=== PATIENT | male | born 1950 | race Caucasian/White ===

== ENCOUNTER → 2021-08-21 08:24 | Outpatient (BNVA) | payer MEDICARE, SELFPAY | PROVIDERS: PCP Internal Medicine; Visit Provider Urology | DX: R97.20 Elevated prostate specific antigen [PSA] (principal); N40.3 Nodular prostate with lower urinary tract symptoms; N13.8 Other obstructive and reflux uropathy; R39.12 Poor urinary stream; R35.1 Nocturia; C61 Malignant neoplasm of prostate | CPT/HCPCS: 99202 ==

== ENCOUNTER 2021-09-17 07:35 | Outpatient (REF) | payer MEDICARE, SELFPAY ==
[2021-09-17 07:53] VITALS: BP 140/77; PULSE 77; RESP 16; TEMP 36.8; O2SAT 98; BMI 24.3
--- NOTE | 2021-09-17 08:24 | W.PM.OPN ---
Operative Note Operative Note Date of Service: 09/17/21 Narrative: Preoperative diagnosis: Elevated PSA Postoperative diagnosis: Elevated PSA Procedure: 1. transrectal ultrasound measurement of prostate 2. transrectal ultrasound-guided pudendal nerve block 3. transrectal ultrasound-guided prostate biopsy 12 core Surgeon: Dr. James Rosen Anesthetic: Local Indications for procedure: Elevated PSA 46, left nodule Procedure: After informed consent was verified, the patient was brought into the procedure area and lay left-hand side down on the table. Patient identity confirmed. Perioperative antibiotics confirmed. Iodine 10cc with Gel was placed per rectum Ultrasound probe was placed per rectum The prostate was measured in 3 dimensions Total volume equals 40 gm There were no cystic structures and no calcifications noted and the prostate was homogeneous in nature A ultrasound-guided pudendal nerve block was performed using 10 cc of 1% lidocaine. 8 cc was placed at the base and 2 cc of the apex. A 12 core biopsy was performed with 6 cores each side. Two cores were taken at the apex, mid and base. Cores were spaced between lateral and medial. He tolerated the procedure well. Was able to ambulate to bathroom after 5 minutes. Printed instructions regarding antibiotic use and common side effects such as low-grade temperature and bleeding were given Pathology: 12 core prostate biopsy.
== END 2021-09-17 07:36 | disposition home or self-care (01) ==
LOC: HO.US 07:35
PROVIDERS: Visit Provider Urology
PROC: (CPT 55700; principal; 2021-09-17 08:00)
DX: C61 Malignant neoplasm of prostate (principal)
CPT/HCPCS: 55700; 76942; 88305; 88342; 88344

== ENCOUNTER → 2021-09-26 10:31 | Outpatient (BNVA) | payer MEDICARE, SELFPAY | PROVIDERS: PCP Internal Medicine; Visit Provider Urology | DX: N40.1 Benign prostatic hyperplasia with lower urinary tract symptoms (principal); C61 Malignant neoplasm of prostate; N13.8 Other obstructive and reflux uropathy; R97.20 Elevated prostate specific antigen [PSA] | CPT/HCPCS: 51798; 99212 ==

== ENCOUNTER 2021-10-07 07:22 | Outpatient (REF) | payer MEDICARE, SELFPAY ==
--- NOTE | ~2021-10-07 | CT_ITS ---
EXAMINATION: CT ABDOMEN AND PELVIS WITHOUT CONTRAST CLINICAL INFORMATION: Prostate cancer. Pain. COMPARISON: None TECHNIQUE: Multidetector volumetric imaging was performed from the superior aspect of the liver through the pubic symphysis. Sagittal and coronal reformatted images were obtained on the technologist's workstation. This CT examination was performed using dose optimization techniques as appropriate, variously including the following: *Automated exposure control *Adjustment of mA and/or kV according to patient size (this includes techniques or standardized protocols for targeted exams where dose is matched to indication/reason for exam; i.e. extremities or head) *Use of iterative reconstruction technique DLP: 361 mGy-cm FINDINGS: LUNG BASES: There is a 3 mm peripheral right lower lobe nodule axial image 43 series 5. LIVER, GALLBLADDER, AND BILIARY TREE: The liver is normal in size, shape, and attenuation. No focal hepatic lesion or biliary ductal dilatation is present. The gallbladder is unremarkable with no evidence of radiopaque gallstones, gallbladder wall thickening, or obvious pericholecystic inflammatory changes. PANCREAS: Unremarkable. SPLEEN: Spleen is absent. There are small splenules. ADRENAL GLANDS: Unremarkable. KIDNEYS AND URETERS: The kidneys are normal in size, shape, and attenuation. No hydronephrosis, hydroureter, or calculi seen. No perinephric stranding. BLADDER: Prostate gland is enlarged and protrudes into the base of the bladder. There may be mild bladder wall thickening. GASTROINTESTINAL TRACT: There is diverticulosis of the colon. Small and large bowel is otherwise unremarkable. The appendix is is not seen. The stomach is unremarkable. ABDOMINAL WALL: No significant hernia is appreciated. LYMPH NODES: There are retroperitoneal lymph nodes in the abdomen. Larger lymph nodes are upper normal in size in the left periaortic region. There are enlarged lymph nodes in the pelvis. Largest left pelvic lymph node left external iliac lymph node measuring 1.2 cm. Largest right lymph node is a right pelvic sidewall or iliac bifurcation lymph node measuring 1.7 cm axial image 62 series 3. There is fat stranding surrounding the enlarged right pelvic retroperitoneal. VASCULAR: There is evidence of atherosclerotic disease. No aneurysm is seen. PELVIC VISCERA: Prostate gland is slightly enlarged, protrudes into the base of the bladder and measures 4 cm. The seminal vesicles appear prominent. No definite soft tissue mass in the pelvis is seen. OSSEOUS STRUCTURES: There are degenerative changes of the spine. There are mild degenerative changes at the joints. No fracture or bone lesion is seen CT/CT abdomen pelvis wo con IMPRESSION: Enlarged prostate gland that protrudes into the base of bladder. The seminal vesicles also appear enlarged. Retroperitoneal adenopathy in the abdomen and pelvis, largest a right pelvic sidewall lymph node measuring 1.7 cm. Diverticulosis of the colon. Absent spleen and splenules. Small 3 mm right lower lobe nodule. This is a nonspecific finding. Follow-up chest CT should be considered. Fleischner guidelines were followed.
== END 2021-10-07 07:23 | disposition home or self-care (01) ==
LOC: HO.CT 07:22
PROVIDERS: Visit Provider Urology
DX: C61 Malignant neoplasm of prostate (principal); C79.51 Secondary malignant neoplasm of bone; G89.3 Neoplasm related pain (acute) (chronic)
CPT/HCPCS: 74176

== ENCOUNTER → 2021-10-17 08:39 | Outpatient (BNVA) | payer MEDICARE, SELFPAY | PROVIDERS: PCP Internal Medicine; Visit Provider Urology | DX: C61 Malignant neoplasm of prostate (principal) | CPT/HCPCS: 96402; 99212; J9217 ==

== ENCOUNTER → 2021-11-21 09:45 | Outpatient (REF) | payer MEDICARE, SELFPAY ==
--- NOTE | ~2021-11-21 | NM_ITS ---
EXAMINATION: NM BONE SCAN OF THE WHOLE BODY CLINICAL INFORMATION: Malignant neoplasm of prostate. COMPARISON: CT of the abdomen and pelvis done on 10/07/2021. TECHNIQUE: Multiple gamma scintillation camera images of the whole body were performed 3 hours following the intravenous administration of 29 mCi Tc-99m MDP. FINDINGS: In the head, no suspicious focal lesion. Incidental note is made of focal increased radiotracer activities, one on each side in the region of the maxilla, may represent dental disease. In the thoracic cage and upper extremities, asymmetric focal increased radiotracer activity is present involving the posterior medial aspect of the right 10th rib. Asymmetric increased focal radiotracer activity at the lateral end of the right clavicle may represent posttraumatic versus metastatic disease. In the spine, subtle focal increased radiotracer activities are noted at L5 and L1, L2, on correlating with the prior CT study done on 10/07/2021, likely represent degenerative changes. In the pelvis, no suspicious focal lesion. In the lower extremities, no suspicious focal lesion. No other definite bony abnormalities are noted. The urinary bladder and faint visualization of both kidneys are noted. NM/NM bone scan whole body IMPRESSION: 1. Focal increased radiotracer activity along the posteromedial aspect of the right 10th rib, of indeterminate etiology. Asymmetric increase focal radiotracer activity in the lateral end of the right clavicle may represent posttraumatic versus metastatic disease. 2. Multifocal osseous increased radiotracer activities within the lumbar spine may represent changes secondary to degenerative spondylosis. Subtle early changes of osseous metastases may also have similar appearance and cannot be absolutely differentiated. 3. Abnormal increased radiotracer activities within the maxillary regions, likely represent dental disease. Follow-up PSMA PET CT study (more sensitive) may be considered for further clarification, if clinically appropriate.
== END ==
LOC: HO.NUCMED 09:45
PROVIDERS: Visit Provider Urology
DX: C61 Malignant neoplasm of prostate (principal); C79.51 Secondary malignant neoplasm of bone
CPT/HCPCS: 78306; A9503

== ENCOUNTER 2022-01-09 12:19 | Outpatient (REF) | payer MEDICARE, SELFPAY ==
[2022-01-09 13:35] LABS: Alanine Aminotransferase 25 U/L (0-40); Albumin Level 4.5 g/dL (3.5-5.0); Alkaline Phosphatase 62 U/L (39-117); Aspartate Amino Transferase 19 U/L (5-37); Bilirubin Direct 0.2 mg/dL (0.0-0.5); Bilirubin Total 0.5 mg/dL (0.0-1.0); Prostate Specific Antigen 4.71 ng/mL (<0.05-4.0); Total Protein 7.2 g/dL (6.5-8.0)
== END 2022-01-09 12:20 | disposition home or self-care (01) ==
LOC: HO.LAB 12:19
PROVIDERS: PCP Internal Medicine; Visit Provider Urology
DX: Z12.5 Encounter for screening for malignant neoplasm of prostate (principal); C61 Malignant neoplasm of prostate
CPT/HCPCS: 36415; 80076; 84153; 84403

== ENCOUNTER → 2022-01-15 09:23 | Outpatient (BNVA) | payer MEDICARE, SELFPAY | PROVIDERS: PCP Internal Medicine; Visit Provider Urology | DX: R23.2 Flushing (principal); T50.905A Adverse effect of unspecified drugs, medicaments and biological substances, initial encounter; C61 Malignant neoplasm of prostate; C77.2 Secondary and unspecified malignant neoplasm of intra-abdominal lymph nodes | CPT/HCPCS: Q3014 ==

== ENCOUNTER 2022-05-21 12:30 | Outpatient (REF) | payer MEDICARE, SELFPAY ==
[2022-05-21 16:15] LABS: Prostate Specific Antigen 3.68 ng/mL (<0.05-4.0)
[2022-05-28 12:33] LABS: Testosterone, Total <1 ng/dL (250-1100)
== END 2022-05-21 12:31 | disposition home or self-care (01) ==
LOC: HO.LAB 12:30
PROVIDERS: PCP Internal Medicine; Visit Provider Urology
DX: C61 Malignant neoplasm of prostate (principal); C77.2 Secondary and unspecified malignant neoplasm of intra-abdominal lymph nodes; R23.2 Flushing; T50.905A Adverse effect of unspecified drugs, medicaments and biological substances, initial encounter; E11.69 Type 2 diabetes mellitus with other specified complication; N52.1 Erectile dysfunction due to diseases classified elsewhere; Z12.5 Encounter for screening for malignant neoplasm of prostate
CPT/HCPCS: 36415; 84153; 84403; 96402; 99212; J9217

== ENCOUNTER → 2022-05-29 15:06 | Outpatient (BNV) | payer MEDICARE, SELFPAY | PROVIDERS: PCP Internal Medicine; Visit Provider Internal Medicine | DX: C61 Malignant neoplasm of prostate (principal) | CPT/HCPCS: 99205; 99213; 99214 ==

== ENCOUNTER 2022-08-20 13:31 | Outpatient (AMB) | payer MEDICARE, SELFPAY ==
--- NOTE | 2022-08-20 14:17 | A.OFFVIS_ITS ---
Intake Intake Visit Reasons: 3m/labs(SET) Intake Note: * Patient presents today for a 3mo follow-up with labs results * Meds- None * Allergies to Antibiotic- None * Blood Thinner- None Lead Tank Mechanic Required: No Accompanied by: Other Relationship Allergies No Known Allergies Allergy (Verified 08/20/22 14:17) HPI HPI Comments History of Present Illness Details Jayy is a pleasant male. He is a patient of Dr. Trujillo. He is seen for the following urologic conditions - elevated PSA - prostate nodule - lower urinary tract symptoms Current 4 tabs abiraterone. Tolerating meds. Three month follow-up with repeat GnRH. Consider follow-up imaging at that point in time 08/31 PSA 0.98 05/01 PSMA avid retroperitoneal lymph nodes, negative bony disease - abiraterone 1 tab daily with low fat breakfast protocol - GnRH administered 03/03 PSA 4.7 Current therapy - GnRH abiraterone with prednisone Prostate cancer - 09/30 high-grade, high-volume, grade group [address] Rosen 10/31 PSA at diagnosis 46 Biopsy #1 Histologic type: Adenocarcinoma, acinar and ductal types ? [place] score: 4+5=9 (left: base lateral and medial, mid lateral, mid medial, apex medial; right: base medial, apex medial) 4+4=8 (right: base lateral, mid lateral, mid medial, apex lateral) 3+4=7 (left apex lateral) ? % of pattern 4: 85%, % of pattern 5: 10%, Grade group: 5, 4, and 2 Tumor quantitation: - Number cores positive: 12 Total number of cores: 12 % of tissue involved: Greater than 95% of all tissue examined Periprostatic fat inv.: Present Seminal vesicle inv.: Not identified Perineural inv.: Present, widespread LVI: Not identified Staging - 10/31 CT scan with pelvic earl disease 1.8 cm consistent with metastases. No evidence of bony islands - 04/03 PET-CT with avid pelvic node right side Elevated PSA Last PSA 6/22 46.5 Prostate hard left side on TREE Lower urinary tract symptoms Initial symptom profile nocturia x1, weakness of stream, incomplete emptying No prior therapy PFSH Medical History High blood pressure Family History Brother Lung cancer Social History Household Members: Spouse and Family Patient Tobacco Use Status: Never used Tobacco Substance Use Type: Marijuana service: No Current occupational status: retired Gender identity: Male Review of Systems Const Denies chills and Denies fever(s) Card Reports no additional complaints and Denies syncope Resp Denies cough GI Denies abdominal pain and Denies heartburn Reports as per HPI and Denies change in libido Neuro Denies syncope Psych Denies change in libido Endo Denies change in libido Physical Exam Const General: cooperative, healthy appearing, comfortable and no acute distress Orientation/consciousness: patient oriented x3 HEENT Face and sinus: Yes normal facial exam Mouth: moist mucous membranes Neck Neck: Yes normal visual inspection, Yes full ROM and Yes trachea midline Chest Chest palpation & inspection: normal inspection of the chest Resp Effort & Inspection: normal respiratory effort, able to speak in complete sentences and no respiratory distress GI Inspection: Yes normal to inspection Back/Spine/Pelvis Cervical Spine: normal cervical lordosis Thoracic/Lumbar Spine: thoracic and lumbar spine normal to inspection Skin General skin exam: no rashes or lesions noted Neuro General: patient oriented x3, gait normal, tone normal and moves all extremities Extrem General: Yes normal to inspection and Yes capillary refill normal Results AMB Urinalysis, Automated UA Leukoctes 0 Paul/uL Last Edit by AZIZA Singleton on 08/20/22 14:37 UA Nitrite Negative Last Edit by AZIZA Singleton on 08/20/22 14:37 UA Urobilinogen 0.2 mg/dL Last Edit by AZIZA Singleton on 08/20/22 14:3 7 UA Protein 0 mg/dL Last Edit by AZIZA Sinlgeton on 08/20/22 14:37 UA pH 6.0 Last Edit by AZIZA Singleton on 08/20/22 14:37 UA Blood 0 Jarek/uL Last Edit by AZIZA Singleton on 08/20/22 14:37 UA Specific Epes 1.030 Last Edit by AZIZA Singleton on 08/20/22 14: 37 UA Ketone Negative Last Edit by AZIZA Singleton on 08/20/22 14:37 UA Bilirubin 0 mg/dL Last Edit by AZIZA Singleton on 08/20/22 14:37 UA Glucose 0 mg/dL Last Edit by AZIZA Singleton on 08/20/22 14:37 Results Reviewed Results Reviewed: Laboratory Last Values Urine pH (Auto) 6.0 08/20/22 14:36 Specific Epes (Auto) 1.030 08/20/22 14:36 Urine Protein (Auto) 0 mg/dL 08/20/22 14:36 Glucose (UA)(Auto) 0 mg/dL 08/20/22 14:36 Urine Ketones (Auto) Negative 08/20/22 14:36 Urine Blood (Auto) 0 Jarek/uL 08/20/22 14:36 Urine Nitrite (Auto) Negative 08/20/22 14:36 Urine Bilirubin (Auto) 0 mg/dL 08/20/22 14:36 Urine Urobilinogen (Auto) 0.2 mg/dL 08/20/22 14:36 Leukocyte Esterase (Auto) 0 Paul/uL 08/20/22 14:36 Assessment & Plan Assessment & Plan (1) Prostate cancer: Comment: 09/30 high-grade high-volume, CT earl disease Code(s): C61 - Malignant neoplasm of prostate (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: Code(s): C61 - Malignant neoplasm of prostate; C77.2 - Secondary and unspecified malignant neoplasm of intra-abdominal lymph nodes Plan 3 month follow-up lab work Orders: Orders AMB Urinalysis Automated Today Z13.9 - Encounter for screening, unspecified Prostate Specific Antigen 3 Months C61 - Malignant neoplasm of prostate, C77.2 - Secondary and unspecified malignant neoplasm of intra-abdominal lymph nodes Testosterone, Total 3 Months C61 - Malignant neoplasm of prostate, C77.2 - Secondary and unspecified malignant neoplasm of intra-abdominal lymph nodes Patient Instructions: Imaging studies, laboratory and physical exam results were discussed and r eviewed in detail. No major barriers to patient understanding were identified. An opportunity to ask questions regarding the treatment plan was provided. All questions were answered. The patient expressed understanding and agreement with the above treatment plan. The patient is aware they should contact our office by phone for worsening of their current condition or the appearance of new urologic symptoms. Compliance is encouraged with any medications and followup testing that is ordered. It is a privilege to participate in the urologic care of your patient. If you have any questions or concerns regarding treatment for the above conditions, or other urologic issues, please do not hesitate to contact me. The office telephone contact is [phone]. This note is constructed using voice recognition software. While every effort has been made to ensure accuracy lace burn out tender errors may have been included. Yours sincerely, Dr James Rosen MD, [facility] - Urology Providers of Expert, Compassionate Care for the Genitourinary System Coding Level of Care Code Est Pt Level 3 (07079) Diagnoses Prostate cancer C61 Prostate cancer metastatic to intraabdominal lymph node C61; C77.2
== END 2022-08-20 15:11 | disposition home or self-care (01) ==
PROVIDERS: Visit Provider Urology
DX: C61 Malignant neoplasm of prostate (principal); C77.2 Secondary and unspecified malignant neoplasm of intra-abdominal lymph nodes
CPT/HCPCS: 99213

== ENCOUNTER → 2022-08-20 13:31 | Outpatient (BNVA) | payer MEDICARE, SELFPAY | PROVIDERS: Visit Provider Urology | DX: C61 Malignant neoplasm of prostate (principal); C77.2 Secondary and unspecified malignant neoplasm of intra-abdominal lymph nodes | CPT/HCPCS: 99212 ==

== ENCOUNTER 2022-12-10 13:59 | Outpatient (AMB) | payer MEDICARE, SELFPAY ==
--- NOTE | 2022-12-10 14:04 | MHC.OFFVIS ---
Intake Intake Visit Reasons: 3m/PSA/Testosterone/GnRH(set) Intake Note: Patient is Present for Follow Up Labs/Eligard Injection Urology Medication: Eligard(q6m), Abiraterone, Prednisone Antibiotic Allergies: None Blood Thinners:None Pharmacy: [facility] Allergies No Known Allergies Allergy (Verified 12/10/22 14:12) Medication List - Last Reconciled 12/10/22 by James Rosen MD abiraterone 1,000 mg (4 x 250 mg) PO DAILY 30 days leuprolide acetate (6 month) (Eligard) 45 mg subcut [id number] prednisone 5 mg PO BID 30 days progesterone micronized 200 mg PO BEDTIME 90 days HPI HPI Comments History of Present Illness Details Jayy is a pleasant male. He is a patient of Dr. Trujillo. He is seen for the following urologic conditions - elevated PSA - prostate nodule - lower urinary tract symptoms Current 4 tabs abiraterone. Tolerating meds. Good control hormonally Reimage in 3 months with PET-CT and DEXA 12/01 PSA 0.5 , T<3 Hot flashes respond to micronized progesterone 08/31 PSA 0.98 05/01 PSMA avid retroperitoneal lymph nodes, negative bony disease - abiraterone 1 tab daily with low fat breakfast protocol - GnRH administered 03/03 PSA 4.7 Current therapy - GnRH abiraterone with prednisone Prostate cancer - 09/30 high-grade, high-volume, grade group 5 Completed oncology assessment - 08/01 Offered triple therapy - GnRH, chemotherapy, anti androgen - declined chemotherapy Genetic testing submitted to in in July 2022 was negative for any known pathogenic or likely pathogenic variants Diagnosed by Dr. Rosen 10/31 PSA at diagnosis 46 Biopsy #1 Histologic type: Adenocarcinoma, acinar and ductal types ? [place] score: 4+5=9 (left: base lateral and medial, mid lateral, mid medial, apex medial; right: base medial, apex medial) 4+4=8 (right: base lateral, mid lateral, mid medial, apex lateral) 3+4=7 (left apex lateral) Tumor quantitation: - Number cores positive: 12 Total number of cores: 12 % of tissue involved: Greater than 95% of all tissue examined Periprostatic fat inv.: Present Seminal vesicle inv.: Not identified Perineural inv.: Present, widespread LVI: Not identified Staging - 10/31 CT scan with pelvic earl disease 1.8 cm consistent with metastases. No evidence of bony islands - 04/03 PET-CT with avid pelvic node right side Elevated PSA Last PSA 07/31 46.5 Prostate hard left side on TREE Lower urinary tract symptoms Initial symptom profile nocturia x1, weakness of stream, incomplete emptying No prior therapy PFSH Medical History High blood pressure Family History Brother Lung cancer Social History Household Members: Spouse and Family Patient Tobacco Use Status: Never used Tobacco Substance Use Type: Marijuana service: No Current occupational status: retired Gender identity: Male Review of Systems Const Denies chills and Denies fever(s) Card Reports no additional complaints and Denies syncope Resp Denies cough GI Denies abdominal pain and Denies heartburn Reports as per HPI and Denies change in libido Neuro Denies syncope Psych Denies change in libido Endo Denies change in libido Physical Exam Const General: cooperative, healthy appearing, comfortable and no acute distress Orientation/consciousness: patient oriented x3 HEENT Face and sinus: Yes normal facial exam Mouth: moist mucous membranes Neck Neck: Yes normal visual inspection, Yes full ROM and Yes trachea midline Chest Chest palpation & inspection: normal inspection of the chest Resp Effort & Inspection: normal respiratory effort, able to speak in complete sentences and no respiratory distress GI Inspection: Yes normal to inspection Back/Spine/Pelvis Cervical Spine: normal cervical lordosis Thoracic/Lumbar Spine: thoracic and lumbar spine normal to inspection Skin General skin exam: no rashes or lesions noted Neuro General: patient oriented x3, gait normal, tone normal and moves all extremities Extrem General: Yes normal to inspection and Yes capillary refill normal Office Meds Eligard (6 month) 45 mg (6 month) subcutaneous syringe Performing Provider: James Rosen MD [facility] Administered by: Daniele Bernabe LPN on 12/10/22 14:27 Dose Route Admin Location Dispensed Lot Number Expiration Date [facility] 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: Code(s): M81.8 - Other osteoporosis without current pathological fracture; T38.7X5A - Adverse effect of androgens and anabolic congeners, initial encounter (2) Prostate cancer: Comment: 09/30 high-grade high-volume, CT earl disease Code(s): C61 - Malignant neoplasm of prostate (3) Prostate cancer metastatic to intraabdominal lymph node: Code(s): C61 - Malignant neoplasm of prostate; C77.2 - Secondary and unspecified malignant neoplasm of intra-abdominal lymph nodes (4) Hot flash due to medication: Code(s): R23.2 - [place]; T50.905A - Adverse effect of unspecified drugs, medicaments and biological substances, initial encounter Plan Three month follow-up imaging with lab Orders: Orders AMB Leuprolide Injection - Practice Supplied Today C61 - Malignant neoplasm of prostate XR DEXA axial skeleton 3 Months M81.8 - Other osteoporosis without current pathological fracture, T38.7X5A - Adverse effect of androgens and anabolic congeners, initial encounter Prostate Specific Antigen 3 Months C61 - Malignant neoplasm of prostate, C77.2 - Secondary and unspecified malignant neoplasm of intra-abdominal lymph nodes Testosterone, Total 3 Months C61 - Malignant neoplasm of prostate, C77.2 - Secondary and unspecified malignant neoplasm of intra-abdominal lymph nodes Creatinine 3 Months C61 - Malignant neoplasm of prostate, C77.2 - Secondary and unspecified malignant neoplasm of intra-abdominal lymph nodes Blood Urea Nitrogen 3 Months C61 - Malignant neoplasm of prostate, C77.2 - Secondary and unspecified malignant neoplasm of intra-abdominal lymph nodes PET CT fusion skull to thigh 3 Months C61 - Malignant neoplasm of prostate, C77.2 - Secondary and unspecified malignant neoplasm of intra-abdominal lymph nodes Medications: New Eligard (6 month) (leuprolide acetate (6 month)) 45 mg subcut ONCE 1 ea 0RF NS C61 - Malignant neoplasm of prostate Refilled progesterone micronized 200 mg PO BEDTIME 90 days 90 caps 1RF N95.1 - Menopausal and female climacteric states Patient Instructions: Imaging studies, laboratory and physical exam results were discussed and reviewed in detail. No major barriers to patient understanding were identified. An opportunity to ask questions regarding the treatment plan was provided. All questions were answered. The patient expressed understanding and agreement with the above treatment plan. The patient is aware they should contact our office by phone for worsening of their current condition or the appearance of new urologic symptoms. Compliance is encouraged with any medications and followup testing that is ordered. It is a privilege to participate in the urologic care of your patient. If you have any questions or concerns regarding treatment for the above conditions, or other urologic issues, please do not hesitate to contact me. The office telephone contact is [phone]. This note is constructed using voice recognition software. While every effort has been made to ensure accuracy talent acquisition consultant errors may have been included. Yours sincerely, Dr James Rosen MD, [facility] - Urology Providers of Expert, Compassionate Care for the Genitourinary System Coding Level of Care Code Est Pt Level 4 (65910) Diagnoses Osteoporosis due to androgen therapy M81.8; T38.7X5A Prostate cancer C61 Prostate cancer metastatic to intraabdominal lymph node C61; C77.2 Hot flash due to medication R23.2; T50.905A
== END 2022-12-10 14:36 | disposition home or self-care (01) ==
LOC: HO.HUSH 13:59
PROVIDERS: PCP Internal Medicine; Visit Provider Urology
DX: M81.8 Other osteoporosis without current pathological fracture (principal); T38.7X5A Adverse effect of androgens and anabolic congeners, initial encounter; C61 Malignant neoplasm of prostate; C77.2 Secondary and unspecified malignant neoplasm of intra-abdominal lymph nodes; R23.2 Flushing; T50.905A Adverse effect of unspecified drugs, medicaments and biological substances, initial encounter
CPT/HCPCS: 99214

== ENCOUNTER → 2022-12-10 13:59 | Outpatient (BNVA) | payer MEDICARE, SELFPAY | PROVIDERS: PCP Internal Medicine; Visit Provider Urology | DX: C61 Malignant neoplasm of prostate (principal); C77.2 Secondary and unspecified malignant neoplasm of intra-abdominal lymph nodes; M81.8 Other osteoporosis without current pathological fracture; R23.2 Flushing; T38.7X5A Adverse effect of androgens and anabolic congeners, initial encounter | CPT/HCPCS: 96402; 99212; J9217 ==

== ENCOUNTER 2023-04-10 08:44 | Outpatient (AMB) | payer MEDICARE, SELFPAY ==
--- NOTE | 2023-04-10 08:45 | A.OFFVIS_ITS ---
Intake Intake Visit Reasons: 3M PSA/Testosterone(set) (Confirmed) Intake Note: Patient presents today for a telehealth follow-up Meds- Eligard, Allergies to Antibiotic- No Known Allergies Blood Thinner- None Olga Argueta is patient sister and will answer the phone call. Cargo Agent Required: No Allergies No Known Allergies Allergy (Verified 04/10/23 08:49) Medication List - Last Reconciled 04/10/23 by James Rosen MD abiraterone 1,000 mg (4 x 250 mg) PO DAILY 90 days diclofenac sodium 1% 2 grams topical ONCE PRN 30 days leuprolide acetate (6 month) (Eligard) 45 mg subcut [id number] prednisone 5 mg PO BID 30 days progesterone micronized 200 mg PO BEDTIME 90 days HPI HPI Comments History of Present Illness Details Jayy is a pleasant male. He is a patient of Dr. Trujillo. He is seen for the following urologic conditions - elevated PSA - prostate nodule - lower urinary tract symptoms Discussed imaging results and lab work Will continue current therapy Three-month follow-up lab with DEXA scan Tells me abiraterone has been reduced to 2 tabs per day secondary to fatigue by Oncology 05/02 Current 2 tabs abiraterone. Tolerating meds. Good control hormonally - PSA 0.2 T<! PET-CT - avid retroperitoneal lymph nodes remain. Similar to 12 months ago. 12/01 PSA 0.5 , T<3 Hot flashes respond to micronized progesterone 08/31 PSA 0.98 05/01 PSMA avid retroperitoneal lymph nod es, negative bony disease - abiraterone 1 tab daily with low fat b reakfast protocol - GnRH administered 03/03 PSA 4.7 Current therapy - GnRH logan raterone with prednisone Prostate cancer - 09/30 high-grade, high-volume, grade group 5 Completed oncology assessment - 08/01 Offered triple therapy - GnRH, chemotherapy, anti androgen - declined chemotherapy Genetic testing submitted to in in July 2022 was negative for any known pathogenic or likely pathogenic variants Diagnosed by Dr. Rosen 10/31 PSA at diagnosis 46 Biopsy #1 Histologic type: Adenocarcinoma, acinar and ductal types Terrance score: 4+5=9 (left: base lateral and medial, mid lateral, mid medial, apex medial; right: base medial, apex medial) 4+4=8 (right: base lateral, mid lateral, mid medial, apex lateral) 3+4=7 (left apex lateral) Tumor quantitation: - Number cores positive: 12 Total number of cores: 12 % of tissue involved: Greater than 95% of all tissue examined Periprostatic fat inv.: Present Seminal vesicle inv.: Not identified Perineural inv.: Present, widespread LVI: Not identified Staging - 10/31 CT scan with pelvic earl disease 1.8 cm consistent with metastases. No evidence of bony islands - 04/03 PET-CT with avid pelvic node righ t side Elevated PSA Last PSA 07/31 46.5 Prostate hard left side on TREE Lower urinary tract symptoms Initial symptom profile nocturia x1, weakness of stream, incomplete emptying No prior therapy PFSH Medical History High blood pressure Family History Brother Lung cancer Social History Household Members: Spouse and Family Patient Tobacco Use Status: Never used Tobacco Substance Use Type: Marijuana service: No Current occupational status: retired Gender identity: Male Review of Systems Const All systems reviewed & are unremarkable except as noted in HPI and below Reports no additional complaints Resp Reports no additional complaints GI Reports no additional complaints Reports as per HPI Musc Reports no additional complaints Physical Exam Telemedicine evaluation Appropriate responses Regular breathing rate and rhythm HEENT Head: Yes normal to inspection Ears: hearing grossly normal bilaterally Eyes General: appearance normal, both eyes and all related structures Neck Neck: Yes normal visual inspection Chest Chest palpation & inspection: normal inspection of the chest Resp Effort & Inspection: normal respiratory effort and able to speak in complete sentences 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: Code(s): M81.8 - Other osteoporosis without current pathological fracture; T38.7X5A - Adverse effect of androgens and anabolic congeners, initial encounter (2) Prostate cancer: Comment: 09/30 high-grade high-volume, CT earl disease Code(s): C61 - Malignant neoplasm of prostate (3) Hot flash due to medication: Code(s): R23.2 - [place]; T50.905A - Adverse effect of unspecified drugs, medicaments and biological substances, initial encounter (4) Prostate cancer metastatic to intraabdominal lymph node: Code(s): C61 - Malignant neoplasm of prostate; C77.2 - Secondary and unspecified malignant neoplasm of intra-abdominal lymph nodes Plan Continue current therapy Three-month follow-up labs +DEXA scan Orders: Orders Prostate Specific Antigen 3 Months C61 - Malignant neoplasm of prostate, C77.2 - Secondary and unspecified malignant neoplasm of intra-abdominal lymph nodes Testosterone, Total 3 Months C61 - Malignant neoplasm of prostate, C77.2 - Secondary and unspecified malignant neoplasm of intra-abdominal lymph nodes XR DEXA axial skeleton 3 Months C61 - Malignant neoplasm of prostate, C77.2 - Secondary and unspecified malignant neoplasm of intra-abdominal lymph nodes Patient Instructions: Imaging studies, laboratory and physical exam results were discussed and reviewed in detail. No major barriers to patient understanding were identified. An opportunity to ask questions regarding the treatment plan was provided. All questions were answered. The patient expressed understanding and agreement with the above treatment plan. The patient is aware they should contact our office by phone for worsening of their current condition or the appearance of new urologic symptoms. Compliance is encouraged with any medications and followup testing that is ordered. It is a privilege to participate in the urologic care of your patient. If you have any questions or concerns regarding treatment for the above conditions, or other urologic issues, please do not hesitate to contact me. The office telephone contact is [phone]. This note is constructed using voice recognition software. While every effort has been made to ensure accuracy hop weigher errors may have been included. Yours sincerely, Dr James Rosen MD, [facility] - Urology Providers of Expert, Compassionate Care for the Genitourinary System Telehealth Telehealth Location of provider rendering services: practice address Location of patient: address on file Patient Identification confirmed using: Name, : Yes Telehealth method: video Patient verbally consented to treatment: Yes Patient verbally consented to billing insurance company: Yes Patient informed of any privacy concerns related to visit: Yes Coding Level of Care Code Tele Est Pt Level 3 (20371) Diagnoses Osteoporosis due to androgen therapy M81.8; T38.7X5A Prostate cancer C61 Hot flash due to medication R23.2; T50.905A Prostate cancer metastatic to intraabdominal lymph node C61; C77.2
== END 2023-04-10 10:12 | disposition home or self-care (01) ==
LOC: HO.HUSH 08:44
PROVIDERS: PCP Internal Medicine; Visit Provider Urology
DX: M81.8 Other osteoporosis without current pathological fracture (principal); T38.7X5A Adverse effect of androgens and anabolic congeners, initial encounter; C61 Malignant neoplasm of prostate; R23.2 Flushing; T50.905A Adverse effect of unspecified drugs, medicaments and biological substances, initial encounter; C77.2 Secondary and unspecified malignant neoplasm of intra-abdominal lymph nodes
CPT/HCPCS: 99213

== ENCOUNTER → 2023-04-10 08:44 | Outpatient (BNVA) | payer MEDICARE, SELFPAY | PROVIDERS: PCP Internal Medicine; Visit Provider Urology ==

== ENCOUNTER 2023-08-06 08:04 | Outpatient (REF) | payer MEDICARE, SELFPAY ==
--- NOTE | ~2023-08-06 | MM_ITS ---
EXAMINATION: BONE DENSITOMETRY CLINICAL INDICATION: Malignant neoplasm of prostate. COMPARISON: This is the patient's baseline examination. TECHNIQUE: Using a [employer] DXA System (software version: 13.1) manufactured by [employer], dual-energy x-ray absorptiometry was performed of the lumbar spine and left hip. The images are of good technical quality. Summary results are attached. FINDINGS: LEFT FEMUR, NECK: BMD 0.988 g/cm2, Z-score 0.7, T-score -0.6, normal. LEFT FEMUR, TOTAL: BMD 1.033 g/cm2, Z-score 0.4, T-score -0.5, normal. AP SPINE L1-L4: BMD 1.396 g/cm2, Z-score 2.1, T-score 1.5, normal. IDENTIFIED RISK FACTORS: Glucocorticoids (chronic). HISTORY OF FRACTURE: None listed. MEDICATIONS: None listed. MM/XR DEXA axial skeleton IMPRESSION: 1. DIAGNOSIS: Normal bone density based on the lowest T-score value of -0.6 in the femoral neck applying World Health Organization criteria. 2. 10-YEAR FRACTURE RISK PREDICTION, FRAX: According to the guidelines, FRAX calculation should only be performed on patients in the osteopenia bone density category. Therefore, FRAX was not performed on this patient. 3. Treatment Recommendations: NOF guidelines recommend consideration for treatment in postmenopausal women and men age 50 and older presenting with the following: -A hip or vertebral (clinical or morphometric) fracture. -T-score less than or equal to -2.5 at the femoral neck or spine after appropriate evaluation to exclude secondary causes. -Low bone mass at the hip or spine and a 10-year fracture probability by FRAX of greater than or equal to 3% for hip fracture or greater than or equal to 20% for major osteoporotic fracture based on the [place] adapted WHO algorithm. 4. Other Recommendations: All treatment decisions require clinical judgment and consideration of individual patient factors, including patient preferences, comorbidities, previous drug use, risk factors not captured in the FRAX model (e.g. frailty, falls, vitamin D deficiency, increased bone turnover, interval significant decline in bone density) and possible under or overestimation of fracture risk by FRAX. FUTURE SCAN RECOMMENDATION: People with diagnosed cases of osteoporosis or at high risk for fracture should have regular bone mineral density tests. For patients eligible for Medicare, routine testing is allowed once every 2 years. The testing frequency can be increased to one year for patients who have rapidly progressing disease, those who are receiving or discontinuing medical therapy to restore bone mass, or have additional risk factors.
== END 2023-08-06 08:05 | disposition home or self-care (01) ==
LOC: HO.MAMMO 08:04
PROVIDERS: PCP Internal Medicine; Visit Provider Urology
DX: Z13.820 Encounter for screening for osteoporosis (principal); C61 Malignant neoplasm of prostate; C77.2 Secondary and unspecified malignant neoplasm of intra-abdominal lymph nodes; E27.49 Other adrenocortical insufficiency
CPT/HCPCS: 77080

== ENCOUNTER 2023-09-01 13:42 | Outpatient (AMB) | payer MEDICARE, SELFPAY ==
--- NOTE | 2023-09-01 14:12 | MHC.OFFVIS ---
Intake Visit Reasons: 3M PSA/Testo/Bone Scan(set) Intake Note: Patient presents today for a 3m/PSA/TESTO/BONE SCAN follow-up Meds- Eligard,PREDNISONE,PROGESTERONE,ABIRATERONE,DICLOFENAC SODIUM,LEUPROLIDE ACETATE Allergies to Antibiotic- No Known Allergies Blood Thinner- None Casino Cashier Manager Required: No Allergies No Known Allergies Allergy (Verified 09/01/23 14:17) Medication List - Last Reconciled 09/01/23 by James Rosen MD abiraterone 1,000 mg (4 x 250 mg) PO DAILY 90 days diclofenac sodium 1% 2 grams topical ONCE PRN 30 days leuprolide acetate (6 month) (Eligard) 45 mg subcut [id number] prednisone 5 mg PO BID 30 days progesterone micronized 200 mg PO BEDTIME 90 days HPI Comments Details: Jayy is a pleasant male. He is a patient of Dr. Trujillo. He is seen for the following urologic conditions - elevated PSA - prostate nodule - lower urinary tract symptoms Doing well Minimal symptoms Due for GnRH Plan for repeat labs in 3 months PET-CT in 3 months Continue progesterone 09/01 - DEXA normal bone density PSA 0.2 T < 2 05/02 Current 2 tabs abiraterone. Tolerating meds. Good control hormonally - PSA 0.2 , T<2 PET-CT - avid retroperitoneal lymph nodes remain. Similar to 12 months ago. 01/01 PSA 0.5 , T<3 Hot flashes respond to micronized progesterone GnRH 08/31 PSA 0.98 05/01 PSMA avid retroperitoneal lymph nodes, negative bony disease - abiraterone 1 tab daily with low fat breakfast protocol - GnRH administered 03/03 PSA 4.7 Current therapy - GnRH abiraterone with prednisone Prostate cancer - 09/30 high-grade, high-volume, grade group 5 Completed oncology assessment - 08/01 Offered triple therapy - GnRH, chemotherapy, anti androgen - declined chemotherapy Genetic testing submitted to in in July 2022 was negative for any known pathogenic or likely pathogenic variants Diagnosed by Dr. Rosen 10/31 PSA at diagnosis 46 Biopsy #1 Histologic type: Adenocarcinoma, acinar and ductal types Musella score: 4+5=9 (left: base lateral and medial, mid lateral, mid medial, apex medial; right: base medial, apex medial) 4+4=8 (right: base lateral, mid lateral, mid medial, apex lateral) 3+4=7 (left apex lateral) Tumor quantitation: - Number cores positive: 12 Total number of cores: 12 % of tissue involved: Greater than 95% of all tissue examined Periprostatic fat inv.: Present Seminal vesicle inv.: Not identified Perineural inv.: Present, widespread LVI: Not identified Staging - 10/31 CT scan with pelvic earl disease 1.8 cm consistent with metastases. No evidence of bony islands - 04/03 PET-CT with avid pelvic node right side Elevated PSA Last PSA 07/31 46.5 Prostate hard left side on TREE Lower urinary tract symptoms Initial symptom profile nocturia x1, weakness of stream, incomplete emptying No prior therapy PFSH Medical History High blood pressure Family History Brother Lung cancer Social History Household Members: Spouse and Family Patient Tobacco Use Status: Never used Tobacco Substance Use Type: Marijuana service: No Current occupational status: retired Gender identity: Male Review of Systems Const Denies chills and Denies fever(s) Card Reports no additional complaints and Denies syncope Resp Denies cough GI Denies abdominal pain and Denies heartburn Reports as per HPI and Denies change in libido Neuro Denies syncope Psych Denies change in libido Endo Denies change in libido Physical Exam Const General: cooperative, healthy appearing, comfortable and no acute distress Orientation/consciousness: patient oriented x3 HEENT Face and sinus: Yes normal facial exam Mouth: moist mucous membranes Neck Neck: Yes normal visual inspection, Yes full ROM and Yes trachea midline Chest Chest palpation & inspection: normal inspection of the chest Resp Effort & Inspection: normal respiratory effort, able to speak in complete sentences and no respiratory distress GI Inspection: Yes normal to inspection Back/Spine/Pelvis Cervical Spine: normal cervical lordosis Thoracic/Lumbar Spine: thoracic and lumbar spine normal to inspection Skin General skin exam: no rashes or lesions noted Neuro General: patient oriented x3, gait normal, tone normal and moves all extremities Extrem General: Yes normal to inspection and Yes capillary refill normal Results AMB Urinalysis, Automated UA Leukoctes 0 Paul/uL Last Edit by GORGE Weathers on 09/01/23 14:34 UA Nitrite Negative Last Edit by Erasto Aleman [facility] on 09/01/23 14:34 UA Urobilinogen 0.2 mg/dL Last Edit by Erasto Aleman [facility] on 09/01/23 14:34 UA Protein 0 mg/dL Last Edit by Erasto Aleman [facility] on 09/01/23 14:34 UA pH 7.0 Last Edit by Erasto Aleman [facility] on 09/01/23 14:34 UA Blood 0 Jarek/uL Last Edit by Erasto Aleman [facility] on 09/01/23 14:34 UA Specific [place] 1.010 Last Edit by Erasto Aleman [facility] on 09/01/23 14:34 UA Ketone Negative Last Edit by Erasto Aleman [facility] on 09/01/23 14:34 UA Bilirubin 0 mg/dL Last Edit by Erasto Aleman [facility] on 09/01/23 14:34 UA Glucose 0 mg/dL Last Edit by Erasto Aleman [facility] on 09/01/23 14:34 Results Reviewed Results Reviewed: Laboratory Last Values Urine pH (Auto) 7.0 09/01/23 14:33 Specific [place] (Auto) 1.010 09/01/23 14:33 Urine Protein (Auto) 0 mg/dL 09/01/23 14:33 Glucose (UA)(Auto) 0 mg/dL 09/01/23 14:33 Urine Ketones (Auto) Negative 09/01/23 14:33 Urine Blood (Auto) 0 Jarek/uL 09/01/23 14:33 Urine Nitrite (Auto) Negative 09/01/23 14:33 Urine Bilirubin (Auto) 0 mg/dL 09/01/23 14:33 Urine Urobilinogen (Auto) 0.2 mg/dL 09/01/23 14:33 Leukocyte Esterase (Auto) 0 Paul/uL 09/01/23 14:33 Assessment & Plan Assessment & Plan (1) Prostate cancer: Comment: 09/30 high-grade high-volume, CT earl disease Code(s): C61 - Malignant neoplasm of prostate Category: Medical (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: Code(s): C61 - Malignant neoplasm of prostate; C77.2 - Secondary and unspecified malignant neoplasm of intra-abdominal lymph nodes Category: Medical Plan Three-month follow-up imaging Orders: Orders AMB Urinalysis Automated 09/01/23 Z13.9 - Encounter for screening, unspecified PET CT fusion skull to thigh 3 Months C61 - Malignant neoplasm of prostate, C77.2 - Secondary and unspecified malignant neoplasm of intra-abdominal lymph nodes Prostate Specific Antigen 3 Months C61 - Malignant neoplasm of prostate, C77.2 - Secondary and unspecified malignant neoplasm of intra-abdominal lymph nodes Testosterone, Total 3 Months C61 - Malignant neoplasm of prostate, C77.2 - Secondary and unspecified malignant neoplasm of intra-abdominal lymph nodes Medications: Refilled progesterone micronized 200 mg PO BEDTIME 90 caps 1RF 90 days N95.1 - Menopausal and female climacteric states Patient Instructions: Imaging studies, laboratory and physical exam results were discussed and reviewed in detail. No major barriers to patient understanding were identified. An opportunity to ask questions regarding the treatment plan was provided. All questions were answered. The patient expressed understanding and agreement with the above treatment plan. The patient is aware they should contact our office by phone for worsening of their current condition or the appearance of new urologic symptoms. Compliance is encouraged with any medications and followup testing that is ordered. It is a privilege to participate in the urologic care of your patient. If you have any questions or concerns regarding treatment for the above conditions, or other urologic issues, please do not hesitate to contact me. The office telephone contact is [phone]. This note is constructed using voice recognition software. While every effort has been made to ensure accuracy clothespin drier operator errors may have been included. Yours sincerely, Dr James Rosen MD, [facility] - Urology Providers of Expert, Compassionate Care for the Genitourinary System Coding Level of Care Code Est Pt Level 3 (10620) Diagnoses Prostate cancer C61 Prostate cancer metastatic to intraabdominal lymph node C61; C77.2
== END 2023-09-01 15:07 | disposition home or self-care (01) ==
PROVIDERS: PCP Internal Medicine; Visit Provider Urology
DX: C61 Malignant neoplasm of prostate (principal); C77.2 Secondary and unspecified malignant neoplasm of intra-abdominal lymph nodes
CPT/HCPCS: 99213

== ENCOUNTER → 2023-09-01 13:42 | Outpatient (BNVA) | payer MEDICARE, SELFPAY | PROVIDERS: PCP Internal Medicine; Visit Provider Urology | DX: C61 Malignant neoplasm of prostate (principal); C77.2 Secondary and unspecified malignant neoplasm of intra-abdominal lymph nodes | CPT/HCPCS: 81003; 99212 ==

== ENCOUNTER 2023-12-03 10:24 | Outpatient (AMB) | payer MEDICARE, SELFPAY ==
--- NOTE | 2023-12-03 10:24 | MHC.OFFVIS ---
Intake Visit Reasons: Follow up pet ct discussion Intake Note: Patient is Present for Telephone Follow Up discussion on PET CT scan Urology Med:Progesterone, Abiraterone Antibiotic Allergy:None Blood Thinner: None Has not had any recent Labs done PSA/Testosterone Will need to re discuss Pet Ct To have scheduled Diesel Truck Driver Required: No Bundling Machine Operator: Bundling Machine Operator Present (Olga) Accompanied by: Sister Allergies No Known Allergies Allergy (Verified 12/03/23 10:26) Medication List - Last Reconciled 12/03/23 by James Rosen MD abiraterone 1,000 mg (4 x 250 mg) PO DAILY 90 days diclofenac sodium 1% 2 grams topical ONCE PRN 30 days leuprolide acetate (6 month) (Eligard) 45 mg subcut [id number] prednisone 5 mg PO BID 30 days progesterone micronized 200 mg PO BEDTIME 90 days HPI Comments Details: Jayy is a pleasant male. He is a patient of Dr. Trujillo. He is seen for the following urologic conditions - elevated PSA - prostate nodule - lower urinary tract symptoms Telemedicine Evaluation 15 min Consultation [employer] Video Needs lab work now and three-month Continues on every abiraterone 4 tablets daily as monotherapy Repeat imaging in three-month 12/02 - no imaging done, no lab work done Continue with logan as single agent therapy 09/01 - DEXA normal bone density PSA 0.2 T < 2 05/02 Current 2 tabs abiraterone. Tolerating meds. Good control hormonally - PSA 0.2 , T<2 PET-CT - avid retroperitoneal lymph nodes remain. Similar to 12 months ago. 01/01 PSA 0.5 , T<3 Hot flashes respond to micronized progesterone GnRH 08/31 PSA 0.98 05/01 PSMA avid retroperitoneal lymph nodes, negative bony disease - abiraterone 1 tab daily with low fat breakfast protocol - GnRH administered 03/03 PSA 4.7 Current therapy - GnRH abiraterone with prednisone Prostate cancer - 09/30 high-grade, high-volume, grade group 5 Completed oncology assessment - 08/01 Offered triple therapy - GnRH, chemotherapy, anti androgen - declined chemotherapy Genetic testing submitted to in in July 2022 was negative for any known pathogenic or likely pathogenic variants Diagnosed by Dr. Rosen 10/31 PSA at diagnosis 46 Biopsy #1 Histologic type: Adenocarcinoma, acinar and ductal types Redford score: 4+5=9 (left: base lateral and medial, mid lateral, mid medial, apex medial; right: base medial, apex medial) 4+4=8 (right: base lateral, mid lateral, mid medial, apex lateral) 3+4=7 (left apex lateral) Tumor quantitation: - Number cores positive: 12 Total number of cores: 12 % of tissue involved: Greater than 95% of all tissue examined Periprostatic fat inv.: Present Seminal vesicle inv.: Not identified Perineural inv.: Present, widespread LVI: Not identified Staging - 10/31 CT scan with pelvic earl disease 1.8 cm consistent with metastases. No evidence of bony islands - 04/03 PET-CT with avid pelvic node right side Elevated PSA Last PSA 07/31 46.5 Prostate hard left side on TREE Lower urinary tract symptoms Initial symptom profile nocturia x1, weakness of stream, incomplete emptying No prior therapy PFSH Medical History High blood pressure Family History Brother Lung cancer Social History Household Members: Spouse and Family Patient Tobacco Use Status: Never used Tobacco Substance Use Type: Marijuana service: No Current occupational status: retired Gender identity: Male Review of Systems Const All systems reviewed & are unremarkable except as noted in HPI and below Reports no additional complaints Resp Reports no additional complaints GI Reports no additional complaints Reports as per HPI Musc Reports no additional complaints Physical Exam Telemedicine evaluation Appropriate responses Regular breathing rate and rhythm HEENT Head: Yes normal to inspection Ears: hearing grossly normal bilaterally Eyes General: appearance normal, both eyes and all related structures Neck Neck: Yes normal visual inspection Chest Chest palpation & inspection: normal inspection of the chest Resp Effort & Inspection: normal respiratory effort and able to speak in complete sentences Telehealth Telehealth Telehealth Platform: [facility] Location of provider rendering services: practice address Location of patient: address on file Patient Identification confirmed using: Name, : Yes Telehealth method: video Patient verbally consented to treatment: Yes Patient verbally consented to billing insurance company: Yes Patient informed of any privacy concerns related to visit: Yes Minutes spent on Phone/Video with Pt.: 15 Assessment & Plan Assessment & Plan (1) Prostate cancer: Comment: 09/30 high-grade high-volume, CT earl disease Code(s): C61 - Malignant neoplasm of prostate Category: Medical (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: Code(s): C61 - Malignant neoplasm of prostate; C77.2 - Secondary and unspecified malignant neoplasm of intra-abdominal lymph nodes Category: Medical Plan Three-month follow-up lab work and imaging Orders: Orders Prostate Specific Antigen Today C61 - Malignant neoplasm of prostate Prostate Specific Antigen 3 Months C61 - Malignant neoplasm of prostate Testosterone, Total 3 Months C61 - Malignant neoplasm of prostate Medications: Refilled prednisone 5 mg PO BID 30 days 60 tabs 5RF C61 - Malignant neoplasm of prostate, C77.2 - Secondary and unspecified malignant neoplasm of intra-abdominal lymph nodes Patient Instructions: Imaging studies, laboratory and physical exam results were discussed and reviewed in detail. No major barriers to patient understanding were identified. An opportunity to ask questions regarding the treatment plan was provided. All questions were answered. The patient expressed understanding and agreement with the above treatment plan. The patient is aware they should contact our office by phone for worsening of their current condition or the appearance of new urologic symptoms. Compliance is encouraged with any medications and followup testing that is ordered. It is a privilege to participate in the urologic care of your patient. If you have any questions or concerns regarding treatment for the above conditions, or other urologic issues, please do not hesitate to contact me. The office telephone contact is [phone]. This note is constructed using voice recognition software. While every effort has been made to ensure accuracy block and case maker errors may have been included. Yours sincerely, Dr James Rosen MD, [facility] - Urology Providers of Expert, Compassionate Care for the Genitourinary System Coding Level of Care Code Tele Est Pt Level 3 (98534) Diagnoses Prostate cancer C61 Prostate cancer metastatic to intraabdominal lymph node C61; C77.2
== END 2023-12-03 11:44 | disposition home or self-care (01) ==
LOC: HO.HUSH 10:24
PROVIDERS: PCP Internal Medicine; Visit Provider Urology
DX: C61 Malignant neoplasm of prostate (principal); C77.2 Secondary and unspecified malignant neoplasm of intra-abdominal lymph nodes
CPT/HCPCS: 99213

== ENCOUNTER → 2023-12-03 10:24 | Outpatient (BNVA) | payer MEDICARE, SELFPAY | PROVIDERS: PCP Internal Medicine; Visit Provider Urology ==

== ENCOUNTER 2024-04-01 12:58 | Outpatient (AMB) | payer MEDICARE, SELFPAY ==
--- NOTE | 2024-04-01 13:04 | A.OFFVIS_ITS ---
Intake Visit Reasons: 3m/Pet-CT/labs(Labs?)[facility] Intake Note: Pt presents to office today for a 3 month follow up/pet-ct/labs Allergies No Known Allergies Allergy (Verified 04/01/24 13:05) HPI Comments Details: Jayy is a pleasant male. He is a patient of Dr. Trujillo. He is seen for the following urologic conditions - elevated PSA - prostate nodule - lower urinary tract symptoms Lab work shows stability Improvement on imaging Would continue with single agent therapy 04/05 P 0.2 T<1 PET-CT performed - focal activity within prostate gland. Interval decrease in activity with an abdominal and pelvic lymph nodes including retroperitoneal and iliac nodes 12/02 - no imaging done, no lab work done Continue with logan as single agent therapy 09/01 - DEXA normal bone density PSA 0.2 T < 2 05/02 Current 2 tabs abiraterone. Tolerating meds. Good control hormonally - PSA 0.2 , T<2 PET-CT - avid retroperitoneal lymph nodes remain. Similar to 12 months ago. 01/01 PSA 0.5 , T<3 Hot flashes respond to micronized progesterone GnRH 08/31 PSA 0.98 05/01 PSMA avid retroperitoneal lymph nodes, negative bony disease - abiraterone 1 tab daily with low fat breakfast protocol - GnRH administered 03/03 PSA 4.7 Current therapy - GnRH abiraterone with prednisone Prostate cancer - 09/30 high-grade, high-volume, grade group 5 Completed oncology assessment - 08/01 Offered triple therapy - GnRH, chemotherapy, anti androgen - declined chemotherapy Genetic testing submitted to in in July 2022 was negative for any known pathogenic or likely pathogenic variants Diagnosed by Dr. Rosen 10/31 PSA at diagnosis 46 Biopsy #1 Histologic type: Adenocarcinoma, acinar and ductal types Terrance score: 4+5=9 (left: base lateral and medial, mid lateral, mid medial, apex medial; right: base medial, apex medial) 4+4=8 (right: base lateral, mid lateral, mid medial, apex lateral) 3+4=7 (left apex lateral) Tumor quantitation: - Number cores positive: 12 Total number of cores: 12 % of tissue involved: Greater than 95% of all tissue examined Periprostatic fat inv.: Present Seminal vesicle inv.: Not identified Perineural inv.: Present, widespread LVI: Not identified Staging - 10/31 CT scan with pelvic earl disease 1.8 cm consistent with metastases. No evidence of bony islands - 04/03 PET-CT with avid pelvic node right side Elevated PSA Last PSA 07/31 46.5 Prostate hard left side on TREE Lower urinary tract symptoms Initial symptom profile nocturia x1, weakness of stream, incomplete emptying No prior therapy PFSH Medical History High blood pressure Family History Brother Lung cancer Social History Household Members: Spouse and Family Patient Tobacco Use Status: Never used Tobacco Substance Use Type: Marijuana service: No Current occupational status: retired Gender identity: Male Review of Systems Const Denies chills and Denies fever(s) Card Reports no additional complaints and Denies syncope Resp Denies cough GI Denies abdominal pain and Denies heartburn Reports as per HPI and Denies change in libido Neuro Denies syncope Psych Denies change in libido Endo Denies change in libido Physical Exam Const General: cooperative, healthy appearing, comfortable and no acute distress Orientation/consciousness: patient oriented x3 HEENT Face and sinus: Yes normal facial exam Mouth: moist mucous membranes Neck Neck: Yes normal visual inspection, Yes full ROM and Yes trachea midline Chest Chest palpation & inspection: normal inspection of the chest Resp Effort & Inspection: normal respiratory effort, able to speak in complete sentences and no respiratory distress GI Inspection: Yes normal to inspection Back/Spine/Pelvis Cervical Spine: normal cervical lordosis Thoracic/Lumbar Spine: thoracic and lumbar spine normal to inspection Skin General skin exam: no rashes or lesions noted Neuro General: patient oriented x3, gait normal, tone normal and moves all extremities Extrem General: Yes normal to inspection and Yes capillary refill normal Assessment & Plan Assessment & Plan (1) Prostate cancer: Comment: 09/30 high-grade high-volume, CT earl disease Code(s): C61 - Malignant neoplasm of prostate Category: Medical (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: Code(s): C61 - Malignant neoplasm of prostate; C77.2 - Secondary and unspecified malignant neoplasm of intra-abdominal lymph nodes Category: Medical Plan Improved disease burden based on imaging Continue surveillance laboratories every three-month Orders: Orders Testosterone, Total 3 Months C61 - Malignant neoplasm of prostate Prostate Specific Antigen 3 Months C61 - Malignant neoplasm of prostate Patient Instructions: This note is constructed using voice recognition software. While every effort has been made to ensure accuracy parquetry floor layer errors may have been included. Imaging studies, laboratory and physical exam results were discussed and reviewed in detail. No major barriers to patient understanding were identified. An opportunity to ask questions regarding the treatment plan was provided. All questions were answered. The patient expressed understanding and agreement with the above treatment plan. The patient is aware they should contact our office by phone for worsening of their current condition or the appearance of new urologic symptoms. Compliance is encouraged with any medications and followup testing that is ordered. It is a privilege to participate in the urologic care of your patient. If you have any questions or concerns regarding treatment for the above conditions, or other urologic issues, please do not hesitate to contact me. The office telephone contact is [phone]. Sincerely, Dr James Rosen MD, [facility] - Urology Compassionate Specialist Care for the Genitourinary System Coding Level of Care Code Est Pt Level 4 (24552) Complex EM visit Add On G2211 Diagnoses Prostate cancer C61 Prostate cancer metastatic to intraabdominal lymph node C61; C77.2
--- OUTSIDE RECORDS SUMMARY | 2024-04-01 13:25 | XMS_ITS | Clinical Summary ---
Author Organization [facility] Address [address] [place] [address] Care Team Providers Care Replenisher Name Role Phone Unavailable Primary Care Provider Unavailabl e Medications Medication Sig Dispensed Refills Start Date End Date Status sulfamethoxazole-t rimethoprim (BACTRIM DS,SEPTRA DS) 800-160 MG per tablet Take 1 tablet (160 mg of trimethoprim total) by mouth 2 (two) times a day. 20 tablet 0 12/08/2018 Active naproxen (NAPROSYN) 500 MG tablet Take 1 tablet (500 mg total) by mouth 2 (two) times a day with meals. 20 tablet 0 12/08/2018 Active Immunizations Name Administration Dates Next Due Td (Tenivac) 12/08/2018 Social History Tobacco Use Types Packs/Day Years Used Date Smoking Tobacco: Never Assessed Sex and Gender Information Value Date Recorded Sex Assigned at Male 12/08/2018 3:06 PM EDT Gender Identity Not on file Sexual Orientation Not on file Last Filed Vital Signs Vital Sign Reading Time Taken Comments Blood Pressure 159/82 12/08/2018 6:24 PM EDT Pulse 80 12/08/2018 6:24 PM EDT Temperature 36.6 ??C (97.8 ??F) 12/08/2018 6:24 PM ED T Respiratory Rate 16 12/08/2018 6:24 PM EDT Oxygen Saturation 99% 12/08/2018 6:24 PM EDT Inhaled Oxygen Concentration - - Weight - - Height - - Body Mass Index - - Plan of Treatment Health Maintenance Due Date Last Done Comments Hepatitis C Screening 1950 COVID-19 Vaccine (#1) 01[birth year]08[birth year]1950 Depression Screening 1961 Preventative Health Evaluation 07/09/1967 Colon Cancer Screening (Colonoscopy) 1994 Shingrix-Zoster Vaccine (1 of 2) 07/09/1999 Fall Risk Assessment 2014 Pneumococcal Vaccine (1 of 1 - PCV) 2014 DTap / Tdap / Td (1 - Tdap) 12/09/2018 12/08/2018 Influenza Vaccine (#1) 2023 RSV Adult > 60+ Yrs or Pregn ant (1 - 1-dose 75+ series) 2024 Hepatitis B Vaccines Aged Out No long er eligible based on patient's age to complete this topic RSV Ped < 20 months Aged Out No longe r eligible based on patient's age to complete this topic
--- OUTSIDE RECORDS SUMMARY | 2024-04-01 13:26 | XMS_ITS | Clinical Summary ---
Author Organization [facility] Address [address] [place] [address] Phone Care Team Providers Care Toolsmith Name Role Phone Unavailable Primary Care Provider Unavailabl e Encounters Date Type Department Care Team Description 03/22/2024 2:05 PM EST - 03/22/2024 11:59 PM EST Hospital Encounter [facility] PET Scan [address] [place] [address] Malignant neoplasm of prostate (CMS/HCC); Secondary and unspecified malignant neoplasm of intra-abdominal lymph nodes (CMS/HCC) Discharge Disposition: Home or Self Care from Last 3 Months Social History Tobacco Use Types Packs/Day Years Used Date Smoking Tobacco: Never Assessed Sex and Gender Information Value Date Recorded Sex Assigned at Not on file Legal Sex Male 12:24 AM EST Gender Identity Not on file Sexual Orientation Not on file Obstetrics History Plan of Treatment Health Maintenance Due Date Last Done Comments COVID-19 Vaccine (#1) 1954 Pneumococcal Vaccine: 50+ Ye ars (1 of 2 - PCV) 1968 Zoster Vaccines (1 of 2) 1968 Abdominal Aortic Aneurysm (A AA) Screen 04/17/2023 Cholesterol Screening (Lipid Panel) 04/17/2023 Colorectal Cancer Screening: Colonoscopy 04/17/2023 Depression Screening 04/17/2023 Falls Risk Assessment 04/17/2023 Hepatitis C Screening 04/17/2023 Medicare Annual Wellness Visit 04/17/2023 Social Influencers of Health Screening 04/17/2023 Influenza Vaccine (#1) 2023 RSV Immunization Patients 60 + Years Old (1 - 1-dose 75+ series) 2024 DTaP,Tdap,and Td Vaccines (2 - Td or Tdap) 12/08/2028 12/08/2018 HIB Vaccines Aged Out No longer eligi ble based on patient's age to complete this topic HPV Vaccines Aged Out No longer eligi ble based on patient's age to complete this topic Hepatitis A Vaccines Aged Out No long er eligible based on patient's age to complete this topic Hepatitis B Vaccines Aged Out No long er eligible based on patient's age to complete this topic IPV Vaccines Aged Out No longer eligi ble based on patient's age to complete this topic MMR Vaccines Aged Out No longer eligi ble based on patient's age to complete this topic Meningococcal ACWY Vaccine Aged Out N o longer eligible based on patient's age to complete this topic Meningococcal B Vacine Aged Out No lo nger eligible based on patient's age to complete this topic RSV Immunization Patients Un enedina 20 months Aged Out No longer eligible b ased on patient's age to complete this topic Varicella Vaccines Aged Out No longer eligible based on patient's age to complete this topic Procedures Procedure Name Priority Date/Time Associated Diagnosis Comments PET CT SKULL TO MID THIGH INITIAL Routine 03/22/2024 3:45 PM EST Malignant neoplasm of prostate (CMS/HCC) Secondary and unspecified malignant neoplasm of intra-abdominal lymph nodes (CMS/HCC) from Last 3 Months Results * PET CT Skull to Mid Thigh Initial (03/22/2024 3:45 PM EST) Anatomical Region Laterality Modality Body Radiographic Lisa ging 03/25/2024 5:59 AM EST Impressions 03/25/2024 11:21 AM EST 1. ??Interval decrease in activity within lymphadenopathy and prostate 2. ??Persistent activity in left upper quadrant soft tissue nodularity; not significantly changed from prior -------- FINAL REPORT -------- Dictated By: Dolly Kwong Dictated Date: 03/25/2024 05:59 ET Assigned Physician: Dolly Kwong Reviewed and Electronically Signed By: Dolly Kwong Signed Date: 03/25/2024 11:21 ET Workstation ID: [id number] Transcribed By: Self Edit Transcribed Date: 03/25/2024 06:19 ET Narrative 03/25/2024 11:21 AM EST HISTORY: Prostate carcinoma, subsequent treatment. PRIOR IMAGING STUDIES: Prior PSMA PET 04/03. RADIOPHARMACEUTICAL: 8.5 mCi F-18 piflufolastat IV INJECTION SITE: Right hand INJECTION TIME TO SCAN TIME: 60 min PROCEDURE: Routine body PET-CT imaging performed from the head to the upper thighs and reconstructed in axial, coronal, sagittal planes at the computer workstation with fused data from both the PET imaging study and attenuation correction CT study. Please note, CT imaging utilized strictly for attenuation correction and anatomic localization: CT not designed to produce and cannot replace ymgyd-iz-bnn-art true diagnostic CT examination with specific protocols. ??Standardized uptake values (SUV) normalized to patient body weight and indicate the highest active concentration (SUV max) in a given disease site. DLP: ??564 mGy-cm IMAGING FINDINGS: Reference values SUV Max: Parotid Gland: 23.1, Blood Pool: 2.2, Liver: 7.7 Expected pattern of physiological activity noted. HEAD AND NECK: No abnormal activity. ??Bilateral maxillary sinus mucosal thickening. THORAX: Nonenlarged right paratracheal lymph node SUV max 2.5 (previously 2.9). ??Nonspecific activity in the left paratracheal region SUV max 2.7 (previously 2.6). ??Right hilar activity SUV max 3.1 (previously ??2.9). ??Left axillary lymph nodes SUV max 1.2 (previously 2.9). Fluid is noted within the esophagus. ??Mild coronary artery calcifications. ABDOMEN/PELVIS: Focal activity within the prostate gland SUV max 8.2 (previously 19.3). Interval decrease in activity within abdominal and pelvic lymph nodes including retroperitoneal and iliac with SUV max up to 7.7 (previously 32.6. ??Soft tissue nodularity in the left upper quadrant SUV Max 4.2 (previously 4.0). Focal activity in the left pelvis SUV max 5 is favored to represent activity within the left ureter given location and proximity. MUSCULOSKELETAL: No abnormal activity. Procedure Note Dolly Kwong MD - 03/25/2024 HISTORY: Prostate carcinoma, subsequent treatment. PRIOR IMAGING STUDIES: Prior PSMA PET 04/03. RADIOPHARMACEUTICAL: 8.5 mCi F-18 piflufolastat IV INJECTION SITE: Right hand INJECTION TIME TO SCAN TIME: 60 min PROCEDURE: Routine body PET-CT imaging performed from the head to the upper thighsand reconstructed in axial, coronal, sagittal planes at the computerworkstation with fused data from both the PET imaging study andattenuation correction CT study. Please note, CT imaging utilized strictlyfor attenuation correction and anatomic localization: CT not designed toproduce and cannot replace kueon-bt-xtx-art true diagnostic CT examinationwith specific protocols. Standardized uptake values (SUV) normalized topatient body weight and indicate the highest active concentration (SUVmax) in a given disease site. DLP: 564 mGy-cm IMAGING FINDINGS: Reference values SUV Max: Parotid Gland: 23.1, BloodPool: 2.2, Liver: 7.7 Expected pattern of physiological activity noted. HEAD AND NECK: No abnormal activity. Bilateral maxillary sinus mucosalthickening. THORAX: Nonenlarged right paratracheal lymph node SUV max 2.5 (previously2.9). Nonspecific activity in the left paratracheal region SUV max 2.7(previously 2.6). Right hilar activity SUV max 3.1 (previously 2.9).Left axillary lymph nodes SUV max 1.2 (previously 2.9). Fluid is noted within the esophagus. Mild coronary arterycalcifications. ABDOMEN/PELVIS: Focal activity within the prostate gland SUV max 8.2(previously 19.3). Interval decrease in activity within abdominal and pelvic lymph nodesincluding retroperitoneal and iliac with SUV max up to 7.7 ([id number]. Soft tissue nodularity in the left upper quadrant SUV Max 4.2(previously 4.0). Focal activity in the left pelvis SUV max 5 is favored to representactivity within the left ureter given location and proximity. MUSCULOSKELETAL: No abnormal activity. IMPRESSION: 1. Interval decrease in activity within lymphadenopathy and prostate 2. Persistent activity in left upper quadrant soft tissue nodularity; notsignificantly changed from prior -------- FINAL REPORT -------- Dictated By: Dolly Kwong Dictated Date: 03/25/2024 05:59 ET Assigned Physician: Dolly Kwong Reviewed and Electronically Signed By: Dolly Kwong Signed Date: 03/25/2024 11:21 ET Workstation ID: [id number] Transcribed By: Self Edit Transcribed Date: 03/25/2024 06:19 ET us James Rosen MD IMG NM PROCEDURES Final Resul t from Last 3 Months Insurance [facility] MEDICARE ADVANTAGE on file Advance Directives Documents on File Type Date Recorded Patient Curing Supervisor Expl anation Health Care Decision (hx) 04/12/2013 AD NUNEZ DIRECTIVE Health Care Decision (hx) 04/12/2013 AD NUNEZ DIRECTIVE
--- OUTSIDE RECORDS SUMMARY | 2024-04-01 13:26 | XMS_ITS | Clinical Summary ---
Author Organization [facility] Address [address] [place] [address] Care Team Providers Care Animal Surgeon Name Role Phone David Diaz MD Primary Care Provider Social History Tobacco Use Types Packs/Day Years Used Date Smoking Tobacco: Never Assessed Sex and Gender Information Value Date Recorded Sex Assigned at Not on file Gender Identity Not on file Sexual Orientation Not on file Last Filed Vital Signs Vital Sign Reading Time Taken Comments Blood Pressure 118/70 06/29/2012 1:56 PM EDT Pulse 84 09/17/2011 12:03 PM EDT Temperature - - Respiratory Rate 12 09/17/2011 12:0 3 PM EDT Oxygen Saturation - - Inhaled Oxygen Concentration - - Weight 74.8 kg (164 lb 15.9 oz) 06/29/2012 1:56 PM EDT Height - - Body Mass Index - - Plan of Treatment Health Maintenance Due Date Last Done Comments Hepatitis C Virus Screening 1950 DTaP/Tdap/Td Vaccines (1 - Tdap) 1968 Colonoscopy 1994 Pneumococcal Vaccines 50+ (1 of 1 - PCV) 07/09/1999 Zoster (Shingles) Vaccine (1 of 2) 07/09/1999 Influenza Vaccine 09/10/2023 COVID-19 Vaccine ( - 2023-2 5 season) 2023 RSV Vaccine 60 years and old er and Patients (1 - 1-dose 75+ series) 2024 Hepatitis B Vaccines Aged Out No long er eligible based on patient's age to complete this topic Care Teams Animal Surgeon Relationship Specialty Start Date End Date David Diaz MD [address] [address] PCP - General Surgery, Orthopedic 02/24/19
--- OUTSIDE RECORDS SUMMARY | 2024-04-01 13:26 | XMS_ITS | Encounter Summary ---
Author Organization [facility] Address [address] [place] [address] Care Team Providers Care Pipe Connector Name Role Phone Unavailable Primary Care Provider Unavailabl e Reason for Referral * Imaging (Routine) - Pending Review Specialty Diagnoses / Procedures Referred By Jean aparicio Referred To Contact Radiology Diagnoses Malignant neoplasm of prostate (CMS/HCC) Secondary and unspecified malignant neoplasm of intra-abdominal lymph nodes (CMS/HCC) Procedures PET CT Skull to Mid Thigh Initial James Rosen MD [address] [place] [address] [place] [address] Phone: tel: fax: [facility] Referral ID Status Reason Start Date Expiration Date V isits Requested Visits Authorized [id number] Pending Review 03/21/2024 03/21/2025 1 1 Reason for Visit * Imaging (Routine) - Pending Review Specialty Diagnoses / Procedures Referred By Jean aparicio Referred To Contact Radiology Diagnoses Malignant neoplasm of prostate (CMS/HCC) Secondary and unspecified malignant neoplasm of intra-abdominal lymph nodes (CMS/HCC) Procedures PET CT Skull to Mid Thigh Initial Jmaes Rosen MD [address] [place] [address] [place] [address] Phone: tel: fax: [facility] Referral ID Status Reason Start Date Expiration Date V isits Requested Visits Authorized [id number] Pending Review 03/21/2024 03/21/2025 1 1 Encounter Details Date Type Department Care Team (Latest Contact Info) Description 03/22/2024 2:05 PM EST - 03/22/2024 11:59 PM EST Hospital Encounter [facility] PET Scan [address] [place] [id number] Malignant neoplasm of prostate (CMS/HCC); Secondary and unspecified malignant neoplasm of intra-abdominal lymph nodes (CMS/HCC) Discharge Disposition: Home or Self Care Social History Tobacco Use Types Packs/Day Years Used Date Smoking Tobacco: Never Assessed Sex and Gender Information Value Date Recorded Sex Assigned at Not on file Legal Sex Male 12:24 AM EST Gender Identity Not on file Sexual Orientation Not on file documented as of this encounter Discharge Disposition Disposition Code Departure Means Destination Home or Self Care documented in this encounter Plan of Treatment Not on file documented as of this encounter Procedures Procedure Name Priority Date/Time Associated Diagnosis Comments PET CT SKULL TO MID THIGH INITIAL Routine 03/22/2024 3:45 PM EST Malignant neoplasm of prostate (CMS/HCC) Secondary and unspecified malignant neoplasm of intra-abdominal lymph nodes (CMS/HCC) documented in this encounter Results * PET CT Skull to Mid [...] Signed Date: 03/25/2024 11:21 ET Workstation ID: [id number] Transcribed By: Self Edit Transcribed Date: 03/25/2024 [...] not designed to produce and cannot replace vwepz-bg-kpi-art true diagnostic CT examination with specific protocols. [...] CT not designed toproduce and cannot replace iovmr-sv-ots-art true diagnostic CT examinationwith specific protocols. Standardized [...] iliac with SUV max up to 7.7 ([id number]. Soft tissue nodularity in the left upper [...] Signed Date: 03/25/2024 11:21 ET Workstation ID: [id number] Transcribed By: Self Edit Transcribed Date: 03/25/2024 06:19 [address] James Rosen [address] [facility] [place] PROCEDURES Final Resul t documented in this encounter Visit Diagnoses Diagnosis Malignant neoplasm of prostate (CMS/HCC) Malignant neoplasm of prostate Secondary and unspecified malignant neoplasm of intra-abdominal lymph nodes (CMS/HCC) Secondary and unspecified malignant neoplasm of intra-abdominal lymph nodes documented in this encounter Administered Medications Inactive Administered Medications - up to 3 most recent administrations Medication Order MAR Action Action Date Dose Rate Site piflufolastat F 18 radio-isotope injection 8.5 millicurie 8.5 millicurie, intravenous, Once in imaging, Starting on Thu03/22/24 at 1430, For 1 dose Given 03/22/2024 2:17 PM EST 8.5 millicuries Right Hand documented in this encounter Orders Medications Ordered That Alvino ht Not Have Been Administered Count Last Ordered Date First Ordered Date piflufolastat F 18 radio-iso kendell injection 8.5 millicurie 1 03/22/2024 documented in this encounter
== END 2024-04-01 13:50 | disposition home or self-care (01) ==
PROVIDERS: PCP Internal Medicine; Visit Provider Urology
DX: C61 Malignant neoplasm of prostate (principal); C77.2 Secondary and unspecified malignant neoplasm of intra-abdominal lymph nodes
CPT/HCPCS: 99214; G2211

== ENCOUNTER → 2024-04-01 12:58 | Outpatient (BNVA) | payer MEDICARE, SELFPAY | PROVIDERS: PCP Internal Medicine; Visit Provider Urology | DX: C61 Malignant neoplasm of prostate (principal); C77.2 Secondary and unspecified malignant neoplasm of intra-abdominal lymph nodes | CPT/HCPCS: 99212 ==

== ENCOUNTER 2024-07-07 11:22 | Outpatient (AMB) | payer MEDICARE, SELFPAY ==
--- NOTE | 2024-07-07 11:38 | A.OFFVIS_ITS ---
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 He is a patient of Dr. Trujillo. He is seen for the following urologic conditions - elevated PSA - prostate nodule - lower urinary tract symptoms 07/03 lab work not done Six-month follow-up lab work We will continue with abiraterone only a single therapy 04/05 P 0.2 T<1 PET-CT performed - focal activity within prostate gland SUV 19.3 - 8.2. Interval decrease in activity with an abdominal and pelvic lymph nodes including retroperitoneal and iliac nodes - SUV 32.6 to 7.7 12/02 - no imaging done, no lab work done Continue with logan as single agent therapy 09/01 - DEXA normal bone density PSA 0.2 T < 2 05/02 Current 2 tabs abiraterone. Tolerating meds. Good control hormonally - PSA 0.2 , T<2 PET-CT - avid retroperitoneal lymph nodes remain. Similar to 12 months ago. 01/01 PSA 0.5 , T<3 Hot flashes respond to micronized progesterone GnRH 08/31 PSA 0.98 05/01 PSMA avid retroperitoneal lymph nodes, negative bony disease - abiraterone 1 tab daily with low fat breakfast protocol - GnRH administered 03/03 PSA 4.7 Current therapy - GnRH abiraterone with prednisone Prostate cancer - 09/30 high-grade, high-volume, grade group 5 Completed oncology assessment - 08/01 Offered triple therapy - GnRH, chemotherapy, anti androgen - declined chemotherapy Genetic testing submitted to in in July 2022 was negative for any known pathogenic or likely pathogenic variants Diagnosed by Dr. Rosen 10/31 PSA at diagnosis 46 Biopsy #1 Histologic type: Adenocarcinoma, acinar and ductal types Elma score: 4+5=9 (left: base lateral and medial, mid lateral, mid medial, apex medial; right: base medial, apex medial) 4+4=8 (right: base lateral, mid lateral, mid medial, apex lateral) 3+4=7 (left apex lateral) Tumor quantitation: - Number cores positive: 12 Total number of cores: 12 % of tissue involved: Greater than 95% of all tissue examined Periprostatic fat inv.: Present Seminal vesicle inv.: Not identified Perineural inv.: Present, widespread LVI: Not identified Staging - 10/31 CT scan with pelvic earl disease 1.8 cm consistent with metastases. No evidence of bony islands - 04/03 PET-CT with avid pelvic node right side Elevated PSA Last PSA 07/31 46.5 Prostate hard left side on TREE Lower urinary tract symptoms Initial symptom profile nocturia x1, weakness of stream, incomplete emptying No prior therapy PFSH Medical History High blood pressure Family History Brother Lung cancer Social History Household Members: Spouse and Family Patient Tobacco Use Status: Never used Tobacco Substance Use Type: Marijuana service: No Current occupational status: retired Gender identity: Male Review of Systems Const Denies chills and Denies fever(s) Card Reports no additional complaints and Denies syncope Resp Denies cough GI Denies abdominal pain and Denies heartburn Reports as per HPI and Denies change in libido Neuro Denies syncope Psych Denies change in libido Endo Denies change in libido Physical Exam Const General: cooperative, healthy appearing, comfortable and no acute distress Orientation/consciousness: patient oriented x3 HEENT Face and sinus: Yes normal facial exam Mouth: moist mucous membranes Neck Neck: Yes normal visual inspection, Yes full ROM and Yes trachea midline Chest Chest palpation & inspection: normal inspection of the chest Resp Effort & Inspection: normal respiratory effort, able to speak in complete sentences and no respiratory distress GI Inspection: Yes normal to inspection Back/Spine/Pelvis Cervical Spine: normal cervical lordosis Thoracic/Lumbar Spine: thoracic and lumbar spine normal to inspection Skin General skin exam: no rashes or lesions noted Neuro General: patient oriented x3, gait normal, tone normal and moves all extremities Extrem General: Yes normal to inspection and Yes capillary refill normal Assessment & Plan Assessment & Plan (1) Prostate cancer metastatic to intraabdominal lymph node: Code(s): C61 - Malignant neoplasm of prostate; C77.2 - Secondary and unspecified malignant neoplasm of intra-abdominal lymph nodes Category: Medical Plan Six-month follow-up lab work Orders: Orders Prostate Specific Antigen 6 Months C61 - Malignant neoplasm of prostate Testosterone, Total 6 Months C61 - Malignant neoplasm of prostate Patient Instructions: This note is constructed using voice recognition software. While every effort has been made to ensure accuracy agile java developer errors may have been included. Imaging studies, laboratory and physical exam results were discussed and reviewed in detail. No major barriers to patient understanding were identified. An opportunity to ask questions regarding the treatment plan was provided. All questions were answered. The patient expressed understanding and agreement with the above treatment plan. The patient is aware they should contact our office by phone for worsening of their current condition or the appearance of new urologic symptoms. Compliance is encouraged with any medications and followup testing that is ordered. It is a privilege to participate in the urologic care of your patient. If you have any questions or concerns regarding treatment for the above conditions, or other urologic issues, please do not hesitate to contact me. The office telephone contact is [phone]. Sincerely, Dr James Rosen MD, [facility] - Urology Compassionate Specialist Care for the Genitourinary System Coding Level of Care Code Est Pt Level 3 (45862) Complex EM visit Add On G2211 Diagnoses Prostate cancer metastatic to intraabdominal lymph node C61; C77.2
--- OUTSIDE RECORDS SUMMARY | 2024-07-07 11:44 | XMS_ITS | Clinical Summary ---
Author Organization [facility] Address [address] [place] [address] Care Team Providers Care Melter Supervisor Electric Arc Furnace Name Role Phone Unavailable Primary Care Provider [...]
== END 2024-07-07 12:13 | disposition home or self-care (01) ==
LOC: HO.HUSH 11:23
PROVIDERS: PCP Internal Medicine; Visit Provider Urology
DX: C61 Malignant neoplasm of prostate (principal); C77.2 Secondary and unspecified malignant neoplasm of intra-abdominal lymph nodes
CPT/HCPCS: 99213; G2211

== ENCOUNTER → 2024-07-07 11:22 | Outpatient (BNVA) | payer MEDICARE, SELFPAY | PROVIDERS: PCP Internal Medicine; Visit Provider Urology | DX: C61 Malignant neoplasm of prostate (principal); C77.2 Secondary and unspecified malignant neoplasm of intra-abdominal lymph nodes | CPT/HCPCS: 99212 ==

== ENCOUNTER 2024-12-15 09:37 | Emergency (ER) | payer MEDICARE, SELFPAY ==
--- NOTE | ~2024-12-15 | CT_ITS ---
EXAMINATION: CT ABDOMEN AND PELVIS WITHOUT CONTRAST CLINICAL INFORMATION: Flank pain and hematuria. History of prostate CA with history of metastatic lymphadenopathy to the pelvis/retroperitoneum. COMPARISON: PET/CT 03/22/2024 [facility]. CT abdomen and pelvis 10/07/2021. TECHNIQUE: Multidetector volumetric imaging was performed from the superior aspect of the liver through the pubic symphysis. Sagittal and coronal reformatted images were obtained on the technologist's workstation. This CT examination was performed using dose optimization techniques as appropriate, variously including the following: *Automated exposure control *Adjustment of mA and/or kV according to patient size (this includes techniques or standardized protocols for targeted exams where dose is matched to indication/reason for exam; i.e. extremities or head) *Use of iterative reconstruction technique FINDINGS: LUNG BASES: Diffuse mild peribronchial thickening bilaterally. Patchy groundglass opacities in both lung bases, nonspecific. No effusions. Heart size top normal. No pericardial effusion. LIVER, GALLBLADDER, AND BILIARY TREE: The unenhanced liver is normal in size, shape, and attenuation. No focal hepatic lesion or biliary ductal dilatation is present. The gallbladder is unremarkable with no evidence of radiopaque gallstones, gallbladder wall thickening, or obvious pericholecystic inflammatory changes. PANCREAS: Unremarkable. SPLEEN: Absent. There are 2 small residual splenules in the splenic fossa, unchanged. ADRENAL GLANDS: Unremarkable. KIDNEYS AND URETERS: There is an 8 x 6 mm nonobstructing calculus in the lower pole of the right kidney. There is no hydronephrosis. Right kidney otherwise normal. The left kidney is normal. The ureters are nondilated. BLADDER: Partially distended. Minimal diffuse wall thickening present. There is a small right posterior diverticulum. No significant perivesicular stranding. GASTROINTESTINAL TRACT: The stomach, duodenum, and small bowel appear normal. There is no CT evidence of appendicitis. The colon demonstrates diverticulosis, which is moderate to severe in the sigmoid region. There is no wall thickening or inflammation identified. The rectum appears normal. ABDOMINAL WALL: Tiny fat-containing left inguinal hernia. LYMPH NODES: Currently no pathologic or abnormal lymph nodes are evident on this examination. VASCULAR: Moderate to heavy calcification of the aorta and iliac arteries. There is mild aortic ectasia without aneurysm. PELVIC VISCERA: The prostate is small in appearance. The seminal vesicles appear normal. OSSEOUS STRUCTURES: There is no lytic or blastic bone lesion identified. There are moderate degenerative changes within the imaged spine, most significant at L4-S1. There are mild to moderate degenerative changes in both hip joints. CT/CT abdomen pelvis wo IV con IMPRESSION: 1. There is no evidence of urological obstruction. There is a nonobstructing 8 x 6 mm right renal calculus. 2. Previously seen lymphadenopathy in the pelvis and retroperitoneum has resolved. No current abnormal lymph nodes are evident. 3. Moderate to severe sigmoid diverticulosis without evidence of acute diverticulitis. 4. Nonspecific patchy groundglass opacities in both lung bases with associated thickening of the small airways. Findings could be infectious or inflammatory in etiology. 5. Additional ancillary findings as discussed in the body of the report. Electronically signed by: Saad Denis MD 12/15/2024 02:40 PM [facility] MONZON
[2024-12-15 09:42] VITALS: BP 144/68; PULSE 75; RESP 15; TEMP 36.4; O2SAT 98; BMI 25.1
[2024-12-15 09:56] LABS: MANUAL DIFF FLAG NO
[2024-12-15 09:57] LABS: Hematocrit 38.3 % (42.0-52.0); Hemoglobin 12.9 g/dl (14.0-18.0); Imm Gran Abs Auto 0.05 X10*3/uL (0.00-0.03); Imm Gran Pct Auto 0.5 % (0.0-0.4); Lymphocytes Absolute Auto 2.2 X10*3/uL (1.2-4.9); Mean Corpuscular HGB Conc 33.7 g/dl (31.0-36.0); Mean Corpuscular Hemoglobin 32.3 pg (27.0-33.0); Mean Corpuscular Volume 95.8 fL (80.0-98.0); NRBC Abs Auto 0.040 X10*3/uL (0.0-0.012); NRBC Pct Auto 0.4 /100WBC (0.0-0.2); Platelet Count 328 X10*3/uL (160-400); Red Blood Count 4.00 X10*6/uL (4.60-5.80); White Blood Count 9.4 X10*3/uL (4.8-10.8)
[2024-12-15 10:22] LABS: Alanine Aminotransferase 13 U/L (0-40); Albumin Level 4.3 g/dL (3.5-5.0); Alkaline Phosphatase 77 U/L (39-117); Anion Gap 12 (12-20); Aspartate Amino Transferase 21 U/L (5-37); Blood Urea Nitrogen 15 mg/dL (9-16); Calcium 9.4 mg/dL (8.4-10.2); Carbon Dioxide 23 mmol/L (22-29); Chloride 111 mmol/L (96-108); Creatinine Clr Calc Pharmacy 65.9; Estimated Glomerular Filt Rate > 60; Magnesium 2.3 mg/dL (1.6-2.6); Potassium 4.1 mmol/L (3.3-5.1); Sodium 142 mmol/L (135-145); Total Protein 7.1 g/dL (6.5-8.0)
--- OUTSIDE RECORDS SUMMARY | 2024-12-15 11:28 | XMS_ITS | Clinical Summary ---
Author Organization [facility] Address [address] [place] [address] Care Team Providers Care Sales Analytics Manager Name Role Phone Unavailable Primary Care Provider [...] 80 12/08/2018 6:24 PM EDT Temperature 36.6 C (97.8 F) 12/08/2018 6:24 PM EDT Respiratory Rate 16 12/08/2018 6:24 PM EDT [...] / Td (1 - Tdap) 12/09/2018 12/08/2018 RSV Adult > 60+ Yrs or Pregn ant (1 - 1-dose 75+ series) 2024 Influenza Vaccine (#1) 2024 Hepatitis B Vaccines Aged Out No long er eligible based on patient's age to complete this topic RSV Ped < 20 months Aged Out No longe r eligible based on patient's age to complete this topic
--- OUTSIDE RECORDS SUMMARY | 2024-12-15 11:28 | XMS_ITS | Clinical Summary ---
Author Organization [facility] Address [address] [place] [address] Care Team Providers Care Wreath Machine Operator Name Role Phone David Diaz MD Primary Care Provider Social History Tobacco Use Types Packs/Day Years Used Date Smoking Tobacco: Never Assessed Sex and Gender Information Value Date Recorded Sex Assigned at Not on file Legal Sex Male 4:30 PM EDT Gender Identity Not on file [...] Health Maintenance Due Date Last Done Comments Advance Care Planning 1950 Hepatitis C Virus Screening 1950 DTaP/Tdap/Td Vaccines (1 - Tdap) 1968 Colonoscopy 1994 Pneumococcal Vaccines 50+ (1 of 1 - PCV) 07/09/1999 Zoster (Shingles) Vaccine (1 of 2) 07/09/1999 RSV Vaccine 50 years and old er and Patients (1 - 1-dose 75+ series) 2024 Influenza Vaccine 09/09/2024 COVID-19 Vaccine ( - 2023-2 5 season) 2024 Hepatitis B Vaccines Aged Out No long er eligible based on patient's age to complete this topic Insurance AIG Care Teams Wreath Machine Operator Relationship Specialty Start Date End Date David Diaz MD [address] [address] PCP - General Surgery, Orthopedic 02/24/19
--- OUTSIDE RECORDS SUMMARY | 2024-12-15 11:28 | XMS_ITS | Clinical Summary ---
Author Organization [facility] Address [address] [place] [address] Phone Care Team Providers Care Supervisor Photocomposition Name Role Phone Unavailable Primary Care Provider Unavailabl e Social History Tobacco Use Types Packs/Day Years Used Date Smoking Tobacco: Never Assessed Sex and Gender Information Value Date Recorded Sex Assigned at Not on file Legal Sex Male 12:24 AM EST Gender Identity Not on file Sexual Orientation Not on file Obstetrics History Plan of Treatment Health Maintenance Due Date Last Done Comments Colorectal Cancer Screening: Colonoscopy 1950 Pneumococcal Vaccine: 50+ Ye ars (1 of 2 - PCV) 1968 Zoster Vaccines (1 of 2) 1968 Abdominal Aortic Aneurysm (A AA) Screen 04/17/2023 Cholesterol Screening (Lipid Panel) 04/17/2023 Falls Risk Assessment 04/17/2023 Hepatitis C Screening 04/17/2023 Medicare Annual Wellness Visit 04/17/2023 Social Influencers of Health Screening 04/17/2023 Depression Screening 02/10/2024 RSV Immunization Adult Patie nts (1 - 1-dose 75+ series) 2024 COVID-19 Vaccine (1 - 2023-2 5 season) 2024 Influenza Vaccine (#1) 2024 DTaP,Tdap,and Td Vaccines (2 - Td [...] age to complete this topic Meningococcal B Vaccine Aged Out No l onger eligible based on patient's age to complete this topic RSV Immunization Patients Un enedina 20 months Aged Out No longer eligible b ased on patient's age to complete this topic Varicella Vaccines Aged Out No longer eligible based on patient's age to complete this topic Insurance [employer]AGE on file Advance Directives Documents on File Type Date Recorded Patient Illustrator Set Expl anation Health Care Decision (hx) 04/12/2013 AD NUNEZ DIRECTIVE Health Care Decision (hx) 04/12/2013 AD NUNEZ DIRECTIVE
--- NOTE | 2024-12-15 11:48 | ED_ITS ---
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 narrative: Patient is a 74-year-old male with history of prostate cancer, splenectomy presenting to the emergency department with complaint of suprapubic abdominal pain since yesterday which has become more sharp today. Denies dysuria, hematuria, frequency. Denies fevers. Denies any back or flank pain. Denies any nausea, vomiting, diarrhea, constipation. MD complaint: suprapubic pain Related Data Home Medications ?Medication ?Instructions ?Recorded ?Confirmed leuprolide acetate (6 month) 45 mg 45 mg subcut Q6MONT HS 12/10/22 12/03/23 (6 month) subcutaneous syringe ([employer]) trazodone 50 mg tablet 50 mg PO DAILY 04/01/24 Previous Rx's ?Medication ?Instructions ?Recorded diclofenac sodium 1 % topical gel 2 g topical ONCE PRN pain 30 days 12/10/22 #100 grams abiraterone 250 mg tablet 1,000 mg (4 x 250 mg) PO TIM LY 30 08/19/24 days #120 tabs prednisone 5 mg tablet 5 mg PO BID 30 days #60 tabs 11/16/24 Allergies Allergy/AdvReac Type Severity Reaction Status Date / Time No Known Allergies Allergy Verified 12/15/24 09:45 Review of Systems 2 Review of Systems: as per hpi Yes all other systems are reviewed and are negative Constitutional: Constitutional: Reports as per HPI PMF Past Medical History Medical History High blood pressure Family History Family History Brother Lung cancer Social History Social History Household Members: Spouse and Family Patient Tobacco Use Status: Never used Tobacco Smoked in Last 30 Days: No Substance Use Type: Marijuana Advance Directives: Yes Advance Directives on File: Yes Advance Directives Date on File: 09/17/21 Do you have a plan to hurt others: No Plan service: No Current occupational status: retired Gender identity: Male Physical Exam ED Vital Signs: Vital Signs - 24 hr 12/15/24 09:42 Temperature 97.6 F Pulse Rate 75 Respiratory Rate 15 Blood Pressure 144/68 H Pulse Oximetry 98 Oxygen Delivery Method Room Air BMI result Body Mass Index 25.1 Vital signs have been reviewed and appear to be correct. Blood pressure normal. Heart rate normal. Respiratory rate normal. Temperature normal. Oxygen saturation normal. Const General: cooperative, healthy appearing and no acute distress Orientation/consciousness: oriented to person, oriented to place, oriented to time and patient oriented x3 Limitations: no limitations HENMT Head: Yes normocephalic and Yes atraumatic Ears: external ears normal General nose exam: Normal external nose present Face and sinus: Yes face symmetric Mouth: oropharynx normal and moist mucous membranes Throat: Yes uvula midline Eyes Pupils: Equal, round and reactive pupils present Neck Neck: Yes normal visual inspection and Yes supple Resp Effort & Inspection: normal respiratory effort and able to speak in complete sentences Auscultation: clear to auscultation bilaterally Cardio Rate: regular rate Rhythm: regular rhythm Heart sounds: S1 normal heart sound present and S2 normal heart sound present GI Palpation (GI): Soft to palpation and nontender Auscultation: normoactive bowel sounds General: Yes no CVA tenderness Back/Spine/Pelvis Back: no CVA tenderness Skin General skin exam: elasticity normal and turgor normal Neuro General: oriented to person, oriented to place, oriented to time, patient oriented x3, moves all extremities, no focal motor deficits and CN's II-XI intact bilaterally Cranial nerves: Yes Equal, round and reactive pupils present Cognition (Neuro): normal cognition Extrem General: Yes full ROM, Yes no pedal edema and Yes no calf tenderness Psych Mental Status: mental status grossly normal Affect: normal affect Thought process: Normal thought process present Medical Decision Making Medical Decision Making MDM Narrative: Patient is a 74-year-old male with history of prostate cancer, splenectomy presenting to the emergency department with complaint of suprapubic abdominal pain since yesterday which has become more sharp today. On exam patient is awake, A+Ox3, VS WNL, afebrile, normal neurological exam without focal deficits, physical exam findings as above. Given reported symptoms and physical exam findings, initial differential includes but is not limited to UTI, pyelonephritis, renal colic, ureteral calculi. Labs notable for no leukocytosis, no evidence of ELANA. UA notable for 2+ blood, no evidence of infection. CT A/P notable for no acute findings to explain patient's symptoms. My interpretation is in agreement with the radiologist's interpretation. Results discussed with patient and all questions answered. Advised patient to follow up with Dr. Rosen this week. Return precautions discussed at bedside. Patient verbalized understanding of and agreement with plan. In-person mobile application architect was utilized for all interactions, assessments, and discussions. Differential Diagnosis as per [facility] Admission/Observation Consideration of admission/observation: Escalation of care including admission/observation considered Patient would have been admitted to the hospital and transferred to appropriate facility had their clinical presentation warranted hospital admission. Lab Data [facility] Lab Attestation statement: I reviewed the patient's lab results. as per [facility] 12/15/24 09:52 12/15/24 09:52 Labs: Lab Results 12/15/24 12/15/24 Range/Units 09:52 11:40 WBC 9.4 (4.8-10.8) X10*3/uL RBC 4.00 L (4.60-5.80) X10*6/uL Hgb 12.9 L (14.0-18.0) g/dl Hct 38.3 L (42.0-52.0) % MCV 95.8 (80.0-98.0) fL MCH 32.3 (27.0-33.0) pg MCHC 33.7 (31.0-36.0) g/dl RDW 14.4 (11.0-16.0) % Plt Count 328 (160-400) X10*3/uL MPV 9.9 (9.4-12.4) fL Immature Gran % (Auto) 0.5 H (0.0-0.4) % Neut % (Auto) 68.6 (45-73) % Lymph % (Auto) 23.4 (20-40) % [place] % (Auto) 5.8 (2-11) % Eos % (Auto) 1.0 (0-4) % Baso % (Auto) 0.7 (0-2) % Lymph # (Auto) 2.2 (1.2-4.9) X10*3/uL [place] # (Auto) 0.5 (0.1-1.2) X10*3/uL Eos # (Auto) 0.1 (0.0-0.4) X10*3/uL Baso # (Auto) 0.1 (0.0-0.2) X10*3/uL Abs Immat Gran (auto) 0.05 H (0.00-0.03) X10*3/uL Absolute Neuts (auto) 6.4 (2.0-8.3) x10*3/uL Absolute Nucleated RBC 0.040 H (0.0-0.012) X10*3/uL Nucleated RBC % (auto) 0.4 H (0.0-0.2) /100WBC Sodium 142 (135-145) mmol/L Potassium 4.1 (3.3-5.1) mmol/L Chloride 111 H (96-108) mmol/L Carbon Dioxide 23 (22-29) mmol/L Anion Gap 12 (12-20) BUN 15 (9-16) mg/dL Creatinine 1.03 (0.5-1.4) mg/dL Estim Creat Clear Calc 65.9 Estimated GFR > 60 Random Glucose 100 (60-115) mg/dL Calcium 9.4 (8.4-10.2) mg/dL Magnesium 2.3 (1.6-2.6) mg/dL Total Bilirubin 0.6 (0.0-1.0) mg/dL Direct Bilirubin 0.2 (0.0-0.5) mg/dL AST 21 (5-37) U/L ALT 13 (0-40) U/L Alkaline Phosphatase 77 (39-117) U/L Total Protein 7.1 (6.5-8.0) g/dL Albumin 4.3 (3.5-5.0) g/dL Urine Color Yellow Urine Appearance Clear Urine pH 5.5 (5.0-9.0) Ur Specific [place] 1.015 (1.005-1.025) Urine Protein Negative (Neg-Trace) mg/dL Urine Glucose (UA) Negative (Negative) mg/dL Urine Ketones Negative (Negative) mg/dL Urine Blood Moderate (2+) H (Negative) Urine Nitrite Negative (Negative) Ur Leukocyte Esterase Negative (Negative) Urine RBC 6-10 H (0-2) /HPF Urine WBC 0-5 (0-5) /HPF Ur Squamous Epith Cells 0-2 (0-2) /HPF Urine Bacteria None Seen (None Seen) Hyaline Casts 0-2 (0-2) /LPF Independent Interpretation I performed an independent interpretation of an: CT Scan Interpretation: CT A/P notable for no acute findings to explain patient's symptoms. Radiology Impression Discussion of test interpretation with radiology: I have reviewed the radiologist's reading. Radiologist Impression: CT/CT abdomen pelvis wo IV con IMPRESSION: 1. There is no evidence of urological obstruction. There is a nonobstructing 8 x 6 mm right renal calculus. 2. Previously seen lymphadenopathy in the pelvis and retroperitoneum has resolved. No current abnormal lymph nodes are evident. 3. Moderate to severe sigmoid diverticulosis without evidence of acute diverticulitis. 4. Nonspecific patchy groundglass opacities in both lung bases with associated thickening of the small airways. Findings could be infectious or inflammatory in etiology. 5. Additional ancillary findings as discussed in the body of the report. External Record Review External record reviewed: Inpatient record, Office record and Outpatient record Discharge Plan Discharge Clinical Impression: Suprapubic pain, Hematuria Patient Disposition: Home, Self-Care Instructions: Abdominal Pain (ED) Additional Instructions: You were evaluated in the emergency department today for abdominal pain. Your urine did not show evidence of infection but a small amount of blood was noted. Your CT scan did not show evidence of any obstructing kidney stones or other acute findings. We recommend that you follow up with Dr. Rosen this week. You can take 650 mg of Tylenol every 6 hours as needed for pain. Return to the emergency department if you develop worsening pain, difficulty or inability to urinate, fever, persistent vomiting or any other new or concerning symptoms. Prescriptions: No Action abiraterone 250 mg tablet 1,000 mg PO DAILY 30 Days Qty: 120 6RF Rx Instructions: must be taken on empty stomach, at least 1 hr before or 2 hrs after a meal/food prednisone 5 mg tablet 5 mg PO BID 30 Days Qty: 60 5RF trazodone 50 mg tablet 50 mg PO DAILY Eligard (6 month) 45 mg syringe 45 mg subcut [id number] diclofenac sodium 1 % gel 2 g topical ONCE PRN (Reason: pain) 30 Days Qty: 100 2RF Rx Instructions: apply to thigh Referrals: James Rosen MD [Physician, Urology] Clinical Impression: Hematuria; Suprapubic pain Print Language: Romanian
[2024-12-15 11:51] LABS: Appearance Urine Clear; Glucose Urine UA Negative (Negative); PH 5.5 (5.0-9.0); Specific Gravity - Urine 1.015 (1.005-1.025); UMIC TRIGGER UACC YES
[2024-12-15 14:00] VITALS: BP 147/75; PULSE 74; RESP 16; TEMP 36.7; O2SAT 98
[2024-12-15 14:59] VITALS: BP 147/75; PULSE 74; RESP 16; TEMP 36.7; O2SAT 98
== END 2024-12-15 15:00 | disposition home or self-care (01) ==
PROVIDERS: Emergency Provider Emergency Medicine; PCP Internal Medicine
DX: R10.24 Suprapubic pain (principal); R31.9 Hematuria, unspecified; R10.30 Lower abdominal pain, unspecified; Z85.46 Personal history of malignant neoplasm of prostate
CPT/HCPCS: 36415; 74176; 80053; 81001; 82248; 83735; 85025; 99284

== ENCOUNTER → 2024-12-15 12:05 | Outpatient (BNV) | payer MEDICARE, SELFPAY | PROVIDERS: Emergency Provider Emergency Medicine; PCP Internal Medicine; Visit Provider Radiology Diagnostic Radiology | DX: K57.30 Diverticulosis of large intestine without perforation or abscess without bleeding (principal); N20.0 Calculus of kidney | CPT/HCPCS: 74176 ==

== ENCOUNTER 2025-01-03 11:29 | Outpatient (AMB) | payer MEDICARE, SELFPAY ==
--- NOTE | 2025-01-03 11:33 | A.OFFVIS_ITS ---
Intake Visit Reasons: 6m/PSA/testo Intake Note: Patient is present for 6 mo follow up Urology Medication:ABIRATERONE Antibiotic Allergy:NONE Blood Thinner:NONE Labs done :12/19/24 Testosterone : <3 , PSA: 0.3 Client Service And Consulting Manager Required: No Accompanied by: Spouse Allergies No Known Allergies Allergy (Verified 01/03/25 11:39) HPI Comments Details: Jayy is a pleasant male. He is a patient of Dr. Trujillo. He is seen for the following urologic conditions - elevated PSA - prostate nodule - lower urinary tract symptoms 01/03 PSA 0.3, T <3 Continues with abiraterone as single therapy - 4 tabs - CT - There is a nonobstructing 8 x 6 mm right renal calculus. Previously seen lymphadenopathy in the pelvis and retroperitoneum has resolved. No current abnormal lymph nodes. No lytic lesions. 07/03 lab work not done Six-month follow-up lab work We will continue with abiraterone only a single therapy 04/05 P 0.2 T<1 PET-CT performed - focal activity within prostate gland SUV 19.3 - 8.2. Interval decrease in activity with an abdominal and pelvic lymph nodes including retroperitoneal and iliac nodes - SUV 32.6 to 7.7 12/02 - no imaging done, no lab work done Continue with logan as single agent therapy 09/01 - DEXA normal bone density PSA 0.2 T < 2 05/02 Current 2 tabs abiraterone. Tolerating meds. Good control hormonally - PSA 0.2 , T<2 PET-CT - avid retroperitoneal lymph nodes remain. Similar to 12 months ago. 01/01 PSA 0.5 , T<3 Hot flashes respond to micronized progesterone GnRH 08/31 PSA 0.98 05/01 PSMA avid retroperitoneal lymph nodes, negative bony disease - abiraterone 1 tab daily with low fat breakfast protocol - GnRH administered 03/03 PSA 4.7 Current therapy - GnRH abiraterone with prednisone Prostate cancer - 09/30 high-grade, high-volume, grade group 5 Completed oncology assessment - 08/01 Offered triple therapy - GnRH, chemotherapy, anti androgen - declined chemotherapy Genetic testing submitted to in in July 2022 was negative for any known pathogenic or likely pathogenic variants Diagnosed by Dr. oRsen 10/31 PSA at diagnosis 46 Biopsy #1 Histologic type: Adenocarcinoma, acinar and ductal types [place] score: 4+5=9 (left: base lateral and medial, mid lateral, mid medial, apex medial; right: base medial, apex medial) 4+4=8 (right: base lateral, mid lateral, mid medial, apex lateral) 3+4=7 (left apex lateral) Tumor quantitation: - Number cores positive: 12 Total number of cores: 12 % of tissue involved: Greater than 95% of all tissue examined Periprostatic fat inv.: Present Seminal vesicle inv.: Not identified Perineural inv.: Present, widespread LVI: Not identified Staging - 10/31 CT scan with pelvic earl disease 1.8 cm consistent with metastases. No evidence of bony islands - 04/03 PET-CT with avid pelvic node right side Elevated PSA Last PSA 07/31 46.5 Prostate hard left side on TREE Lower urinary tract symptoms Initial symptom profile nocturia x1, weakness of stream, incomplete emptying No prior therapy PFSH Medical History High blood pressure Family History Brother Lung cancer Social History Household Members: Spouse and Family Patient Tobacco Use Status: Never used Tobacco Substance Use Type: Marijuana Advance Directives Date on File: 09/17/21 service: No Current occupational status: retired Gender identity: Male Review of Systems Const Denies chills and Denies fever(s) Card Reports no additional complaints and Denies syncope Resp Denies cough GI Denies abdominal pain and Denies heartburn Reports as per HPI and Denies change in libido Neuro Denies syncope Psych Denies change in libido Endo Denies change in libido Physical Exam Const General: cooperative, healthy appearing, comfortable and no acute distress Orientation/consciousness: patient oriented x3 HEENT Face and sinus: Yes normal facial exam Mouth: moist mucous membranes Neck Neck: Yes normal visual inspection, Yes full ROM and Yes trachea midline Chest Chest palpation & inspection: normal inspection of the chest Resp Effort & Inspection: normal respiratory effort, able to speak in complete sentences and no respiratory distress GI Inspection: Yes normal to inspection Back/Spine/Pelvis Cervical Spine: normal cervical lordosis Thoracic/Lumbar Spine: thoracic and lumbar spine normal to inspection Skin General skin exam: no rashes or lesions noted Neuro General: patient oriented x3, gait normal, tone normal and moves all extremities Extrem General: Yes normal to inspection and Yes capillary refill normal Assessment & Plan Assessment & Plan (1) Prostate cancer: Comment: 09/30 high-grade high-volume, CT earl disease Code(s): C61 - Malignant neoplasm of prostate Category: Medical (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: Code(s): C61 - Malignant neoplasm of prostate; C77.2 - Secondary and unspecified malignant neoplasm of intra-abdominal lymph nodes Category: Medical Plan Four month follow-up check lab work Orders: Orders Prostate Specific Antigen 4 Months C61 - Malignant neoplasm of prostate, C77.2 - Secondary and unspecified malignant neoplasm of intra-abdominal lymph nodes Testosterone, Total 4 Months C61 - Malignant neoplasm of prostate, C77.2 - Secondary and unspecified malignant neoplasm of intra-abdominal lymph nodes US renal BI 4 Months C61 - Malignant neoplasm of prostate, C77.2 - Secondary and unspecified malignant neoplasm of intra-abdominal lymph nodes Medications: Refilled diclofenac sodium 1% apply to thigh 2 grams topical ONCE PRN 100 grams 2RF pain 30 days M81.8 - Other osteoporosis without current pathological fracture, T38.7X5A - Adverse effect of androgens and anabolic congeners, initial encounter Patient Instructions: This note is constructed using voice recognition software. While every effort has been made to ensure accuracy adjunct business instructor errors may have been included. Imaging studies, laboratory and physical exam results were discussed and reviewed in detail. No major barriers to patient understanding were identified. An opportunity to ask questions regarding the treatment plan was provided. All questions were answered. The patient expressed understanding and agreement with the above treatment plan. The patient is aware they should contact our office by phone for worsening of their current condition or the appearance of new urologic symptoms. Compliance is encouraged with any medications and followup testing that is ordered. It is a privilege to participate in the urologic care of your patient. If you have any questions or concerns regarding treatment for the above conditions, or other urologic issues, please do not hesitate to contact me. The office telephone contact is [phone]. Sincerely, Dr James Rosen MD, [facility] - Urology Compassionate Specialist Care for the Genitourinary System Coding Level of Care Code Complex visit Add On G2211 Diagnoses Prostate cancer C61 Prostate cancer metastatic to intraabdominal lymph node C61; C77.2
--- OUTSIDE RECORDS SUMMARY | 2025-01-03 15:14 | XMS_ITS | Clinical Summary ---
Author Organization [facility] Address [address] [place] [address] Care Team Providers Care Blending Tank Tender Name Role Phone David Diaz MD Primary [...] complete this topic Insurance AIG Care Teams Blending Tank Tender Relationship Specialty Start Date End Date David Diaz MD [address] [address] PCP - General Surgery, Orthopedic 02/24/19
--- OUTSIDE RECORDS SUMMARY | 2025-01-03 15:14 | XMS_ITS | Clinical Summary ---
Author Organization [employer] [facility] Address [address] [place] [address] Care Team Providers Care Roller Repairer Name Role Phone Unavailable Primary Care Provider [...]
== END 2025-01-03 12:12 | disposition home or self-care (01) ==
LOC: HO.HUSH 11:30
PROVIDERS: PCP Internal Medicine; Visit Provider Urology
DX: C61 Malignant neoplasm of prostate (principal); C77.2 Secondary and unspecified malignant neoplasm of intra-abdominal lymph nodes
CPT/HCPCS: 99213; G2211

== ENCOUNTER → 2025-01-03 11:29 | Outpatient (BNVA) | payer MEDICARE, SELFPAY | PROVIDERS: PCP Internal Medicine; Visit Provider Urology | DX: C61 Malignant neoplasm of prostate (principal); C77.2 Secondary and unspecified malignant neoplasm of intra-abdominal lymph nodes | CPT/HCPCS: 99212 ==